=== PATIENT | female | born 1970 | race Caucasian/White ===

== ENCOUNTER 2017-01-04 00:07 | Emergency (ER) | payer OTHER ==
[2017-01-04] MEDS ORDERED: SUBLIMAZE 100 MCG/2 ML IV ONE ×2 (00:22→01:53)
[2017-01-04] MEDS ORDERED: Sodium Chloride 0.9% 1000 ML 1,000 ML IV STA ×2 (00:22→01:55)
--- NOTE | 2017-01-04 00:22 | ERPHSYRPT ---
- History of Present Illness Source: patient, family Patient Subjective Stated Complaint: PT STATES SHE HAS BEEN OUTSIDE IN THE HEAT A LOT THE LAST FEW DAYS AND STATES HER HEAD BEGAN TO HURT THIS MORNING. PT STATES THE PAIN IS IN THE LEFT SIDE OF HER HEAD. PT STATES SHE HAS BEEN UNDER A LOT OF STRESS RECENTLY. Triage Nursing Assessment: PT IS AOX3, PUPILS PERRL, AMBULATORY TO COT WITH NO DIFFICULTIES, RESPS ARE EASY AND NON LABORED, RADIAL PULSES STRONG AND EQUAL. Physician History: Patient out in the sun and heat last couple of days at [facility] and under some increased emotional stress was bolused chronic pain low back for which she is to see a pain specialist later today. Slight nausea and photophobia a history of infrequent headaches and no previous history of migraines. No recent head trauma. Timing/Duration: today, worse Quality: aching, throbbing, tightness Head Pain Location: frontal, temporal Severity of Pain-Max: severe Severity of Pain-Current: severe Recent Head Trauma: no recent headache/trauma Modifying Factors: Improves With: other (as noted above) Associated Symptoms: nausea/vomiting (nausea only), sensitive to light Previous symptoms: other (headaches usually infrequent) Allergies/Adverse Reactions: Sulfa (Sulfonamide Antibiotics) Allergy (Verified 01/04/17 00:17) Home Medications: Alprazolam 1 mg [Xanax 1 mg] 1 mg PO BID PRN 01/04/17 [History] Estradiol 1 mg [Estrace 1 mg] 1 mg PO DAILY 01/04/17 [History] Hydrocodone Bit/Acetaminophen [Hydrocodon-Acetaminophn 10-325] 1 each PO Q4- 6HPRN PRN 01/04/17 [History] Hx Tetanus, Diphtheria Vaccination/Date Given: Yes Hx Influenza Vaccination/Date Given: No Hx Pneumococcal Vaccination/Date Given: No Immunizations Up to Date: Yes - Review of Systems Constitutional: Fatigue, No Fever, No Chills Eyes: Photophobia Ears, Nose, & Throat: No Symptoms Respiratory: No Symptoms Cardiac: No Symptoms Abdominal/Gastrointestinal: Nausea (only) Genitourinary Symptoms: No Symptoms Musculoskeletal: No Symptoms Skin: No Symptoms Neurological: No Symptoms Psychological: No Symptoms Endocrine: No Symptoms - Past Medical History Pertinent Past Medical History: No Neurological History: No Pertinent History ENT History: No Pertinent History Cardiac History: No Pertinent History Respiratory History: Asthma Endocrine Medical History: No Pertinent History Musculoskeletal History: Degenerative Disk Disease (chronic low back pain) GI Medical History: No Pertinent History History: No Pertinent History Psycho-Social History: Anxiety Female Reproductive Disorders: No Pertinent History Other Medical History: ALLERGIES - Past Surgical History Past Surgical History: Yes Female Surgical History: Hysterectomy - Social History Smoking Status: Current every day smoker How long have you smoked: 1 Exposure to second hand smoke: Yes Drug Use: none Patient Lives Alone: No - Female History Hx Last Menstrual Period: HYST - Nursing Vital Signs Nursing Vital Signs: Initial Vital Signs Temperature 97.7 F 01/04/17 00:08 Pulse Rate 65 01/04/17 00:08 Respiratory Rate 20 01/04/17 00:08 Blood Pressure 141/91 01/04/17 00:08 O2 Sat by Pulse Oximetry 97 01/04/17 00:08 Pain Scale Pain Intensity 2 - Physical Exam General Appearance: moderate distress, alert, anxiety, obese Eye Exam: PERRL/EOMI Ears, Nose, Throat Exam: normal ENT inspection Neck Exam: normal inspection, non-tender, full range of motion, No supple, No Brudzinski, No Kernig's, No limited range of motion, No lymphadenopathy Respiratory Exam: normal breath sounds, lungs clear Cardiovascular Exam: regular rate/rhythm, normal heart sounds, normal peripheral pulses Gastrointestinal/Abdominal Exam: soft, normal bowel sounds, No tenderness, No distention, No mass, No guarding, No pulsatile mass, No rebound Back Exam: normal inspection Extremity Exam: normal inspection Mental Status Exam: alert, oriented x 3, 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 Exam: normal hearing, normal speech, PERRL, No abnormal eye position, No facial droop Coordination/Gait Exam: normal gait Motor/Sensory Exam: no motor deficit, no sensory deficit, No weak motor strength RUE, No weak motor strength LUE, No weak motor strength RLE, No weak motor strength LLE Skin Exam: normal color, warm, dry Lymphatic Exam: No adenopathy SpO2 Interpretation: normal SpO2: 97 Oxygen Delivery: Room Air Ordered Tests: Active Orders 24 hr Category Date Time Status CBC W DIFF Stat Lab 01/04/17 00:42 Completed CK-Creatinine Phosphokinase Stat Lab 01/04/17 00:42 Completed CMP Stat Lab 01/04/17 00:42 Completed MAGNESIUM Stat Lab 01/04/17 00:42 Completed Medication Summary Discontinued Medications Generic Name Dose Route Start Last Admin Trade Name Josiah PRN Reason Stop Dose Admin Diphenhydramine HCl 25 mg 01/04/17 01:52 01/04/17 02:04 Benadryl 50 Mg/Ml IV 01/04/17 01:53 25 mg STAT ONE Administration Diphenhydramine HCl Confirm 01/04/17 02:01 Benadryl 50 Mg/Ml Administered 01/04/17 02:02 Dose 50 mg .ROUTE .STK-MED ONE Fentanyl Citrate 50 mcg 01/04/17 00:22 01/04/17 00:45 Sublimaze 100 Mcg/2 Ml IV 01/04/17 00:23 50 mcg STAT ONE Administration Fentanyl Citrate Confirm 01/04/17 00:43 Sublimaze 100 Mcg/2 Ml Administered 01/04/17 00:44 Dose 100 mcg .ROUTE .STK-MED ONE Fentanyl Citrate 50 mcg 01/04/17 01:53 01/04/17 02:04 Sublimaze 100 Mcg/2 Ml IV 01/04/17 01:54 50 mcg STAT ONE Administration Fentanyl Citrate Confirm 01/04/17 02:01 Sublimaze 100 Mcg/2 Ml Administered 01/04/17 02:02 Dose 100 mcg .ROUTE .STK-MED ONE Sodium Chloride 1,000 mls @ 999 mls/hr 01/04/17 00:22 01/04/17 00:45 Sodium Chloride 0.9% 1000 Ml IV 01/04/17 01:22 999 mls/hr .Q1H1M STA Administration Sodium Chloride Confirm 01/04/17 00:43 Sodium Chloride 0.9% 1000 Ml Administered 01/04/17 00:44 Dose 1,000 mls @ ud .ROUTE .STK-MED ONE Sodium Chloride 1,000 mls @ 999 mls/hr 01/04/17 01:55 01/04/17 02:09 Sodium Chloride 0.9% 1000 Ml IV 01/04/17 02:55 999 mls/hr .Q1H1M STA Administration Sodium Chloride Confirm 01/04/17 02:02 Sodium Chloride 0.9% 1000 Ml Administered 01/04/17 02:03 Dose 1,000 mls @ ud .ROUTE .STK-MED ONE Lab/Rad Data: Laboratory Result Diagrams 01/04/17 00:42 01/04/17 00:42 Laboratory Results 01/04/17 01/04/17 Range/Units 00:42 00:42 WBC 7.1 (4.0-10.5) K/mm3 RBC 4.14 (4.1-5.4) M/mm3 Hgb 13.7 (12.0-16.0) gm/dl Hct 41.3 (35-47) % MCV 99.8 (78-100) fl MCH 33.1 H (26-32) pg MCHC 33.2 (32-36) g/dl RDW 13.3 (11.5-14.0) % Plt Count 229 (150-450) K/mm3 MPV 10.5 H (6-9.5) fl Gran % 51.6 (36.0-66.0) % Lymphocytes % 32.7 (24.0-44.0) % Monocytes % 8.0 (0.0-12.0) % Eosinophils % 6.9 H (0.00-5.0) % Basophils % 0.8 (0.0-0.4) % Basophils # 0.06 (0-0.4) Sodium 141 (136-145) mEq/L Potassium 3.7 (3.5-5.1) mEq/L Chloride 106 (98-107) mEq/L Carbon Dioxide 27.3 (21-32) mEq/L Anion Gap 11.5 (5-15) MEQ/L BUN 9 (9-20) mg/dL Creatinine 0.77 (0.55-1.30) mg/dl Estimated GFR > 60 ML/MIN Glucose 119 H (70-110) MG/DL Calcium 9.0 (8.5-10.1) mg/dL Magnesium 2.0 (1.8-2.4) mg/dL Total Bilirubin 0.20 (0.2-1.0) mg/dL AST 23 (15-37) U/L ALT 30 (12-78) U/L Alkaline Phosphatase 68 (46-116) U/L Creatine Kinase 85 (26-192) U/L Serum Total Protein 7.1 (6.4-8.2) gm/dL Albumin 3.5 (3.4-5.0) g/dL - Progress Progress: improved, re-examined Air Movement: good Progress Note: 01/04/17 03:16Patient markedly improved after 2 L of normal saline 2 doses of intravenous fentanyl and 1 of IV Benadryl. Resting comfortably with no further nausea or vomiting. Headache markedly improved ready for discharge home. See discharge diagnosis and instructions. Probable heat exhaustion/cephalgia symptomatology. Blood Culture(s) Obtained: No Antibiotics given: No - Departure Time of Disposition: 03:13 Departure Disposition: Home Clinical Impression: Heat exhaustion, unspecified Qualifiers: Encounter type: initial encounter Qualified Code(s): T67.5XXA - Heat exhaustion , unspecified, initial encounter Cephalgia Qualifiers: Headache type: unspecified Headache chronicity pattern: acute headache Condition: Stable Critical Care Time: No Referrals: NAHID ZHOU [Primary Care Provider] - Instructions: Headache Additional Instructions: Recommend resting dark room next 4 hours with nothing to eat or drink. Then slowly returned to regular diet but also recommend one 16 ounce Powerade or Gatorade daily. Return to your regular medications and follow up with your medical appointment later today. Return to ER or see medical provider for any significant concerns or issues such as severe recurrent headache nausea vomiting fever chills etc.
[2017-01-04] MEDS ORDERED: Sodium Chloride 0.9% 1000 ML 1,000 ML ONE ×2 (00:43→02:02)
[2017-01-04] MEDS ORDERED: SUBLIMAZE 100 MCG/2 ML ONE ×2 (00:43→02:01)
[2017-01-04 00:45] LABS: BASOPHIL % 0.8 % (0.0-0.4); Eosinophil % 6.9 % (0.00-5.0); Granulocytes % 51.6 % (36.0-66.0); Lymphocytes % 32.7 % (24.0-44.0); Mean Cell Volume 99.8 fl (78-100); Mean Corpuscular Hemoglobin 33.1 pg (26-32); Mean Platelet Volume 10.5 fl (6-9.5); Platelet Count 229 K/mm3 (150-450); Red Blood Count 4.14 M/mm3 (4.1-5.4); Red Cell Distribution Width 13.3 % (11.5-14.0); White Blood Count 7.1 K/mm3 (4.0-10.5)
[2017-01-04 01:06] LABS: ALBUMIN 3.5 g/dL (3.4-5.0); ALKALINE PHOSPHATASE 68 U/L (46-116); ANION GAP 11.5 MEQ/L (5-15); BLOOD UREA NITROGEN 9 mg/dL (9-20); CHLORIDE 106 mEq/L (98-107); Carbon Dioxide 27.3 mEq/L (21-32); Glucose 119 MG/DL (70-110); Potassium 3.7 mEq/L (3.5-5.1); SGOT/AST 23 U/L (15-37); SGPT/ALT 30 U/L (12-78); SODIUM 141 mEq/L (136-145); Total Protein 7.1 gm/dL (6.4-8.2)
[2017-01-04] MEDS ORDERED: BENADRYL 50 MG/ML IV ONE (01:52)
[2017-01-04] MEDS ORDERED: BENADRYL 50 MG/ML ONE (02:01)
[2017-01-04 03:20] VITALS: BP 123/59; PULSE 65
[2017-01-04 03:23] VITALS: O2SAT 97
== END 2017-01-04 03:37 | disposition home or self-care (01) ==
LOC: ED 00:07
DX: T67.5XXA Heat exhaustion, unspecified, initial encounter (principal); R51 Headache
CPT/HCPCS: 36415; 80053; 82550; 83735; 85025; 96360; 96361; 99284; J1200; J3010

== ENCOUNTER 2018-05-23 06:03 | Day surgery (SDC) | payer OTHER ==
[2018-05-23] MEDS ORDERED: DIPRIVAN 200 MG/20 ML IV ONE (06:04)
[2018-05-23] MEDS ORDERED: Lactated Ringers 1,000 ML IV SCH (06:30)
[2018-05-23] MEDS ORDERED: Lactated Ringers 1,000 ML IV ONE (08:26)
--- NOTE | 2018-05-23 08:49 | OP ---
SURGERY DATE/TIME: 05/23/2018 0746 PREOPERATIVE DIAGNOSIS: Change in bowel habits with constipation, cecal swelling, history of irritable bowel. POSTOPERATIVE DIAGNOSIS: Multiple polyps small in the rectum area and one in the descending colon. PROCEDURE: Colonoscopy with biopsy. SURGEON: Dr. Powell. ANESTHESIA: MAC. Medications given by anesthesia department. HISTORY: The patient is a 47 year-old white female presenting now for colonoscopic evaluation. She reports she has been having change in bowel habits with cecal swelling and difficulty with constipation. She reports she had been previously diagnosed years ago with irritable bowel syndrome. The patient reports she did have previous colonoscopy years ago which was essentially negative. The patient was felt to need to have re-investigation at this point with her change in bowel habits. She was described the risks of the procedure including the risk of perforation, phlebitis, untoward reaction to medication, bleeding and missed lesions. The patient verbalized her understanding and desired to have the procedure performed. DESCRIPTION OF PROCEDURE: The patient was given the medications by the anesthesia department. She had continuous pulse oximetry, ECG monitoring, intermittent blood pressure monitoring and tidal CO2 monitoring during the examination. She was placed in the left lateral decubitus position. A digital rectal examination was performed and revealed anal sphincter tone to be somewhat loose. No palpable masses were felt. The flexible Olympus pediatric colonoscope was used to intubate the rectum. A view of the colon was developed sequentially to the cecum. Upon insertion and withdrawal, including a retroflex view in the rectum was noted a small polyp in the descending colon this is biopsied to rule out adenomatous change. There were also multiple polyps in the rectosigmoid area and these were biopsied using cold biopsy technique to determine the nature of these lesions as well. The scope was removed from the patient who tolerated the procedure well and was sent back to OP recovery in good condition. The prep was noted to be fair.
[2018-05-23 09:33] VITALS: O2SAT 98
[2018-05-23 09:54] VITALS: BP 102/70; PULSE 58
== END 2018-05-23 09:45 | disposition home or self-care (01) ==
LOC: SDC 06:03
PROVIDERS: ATTEND Family Medicine
DX: K62.1 Rectal polyp (principal); R19.4 Change in bowel habit; K59.00 Constipation, unspecified; K63.5 Polyp of colon
CPT/HCPCS: 88305; 94250; J2704

== ENCOUNTER 2019-05-07 06:58 | Day surgery (SDC) | payer OTHER ==
[~2019-05-07 06:58] MED LIST: Lactated Ringers 1,000 ML IV ONE; Sensorcaine 0.25% 10 ML ONE
[2019-05-07] MEDS ORDERED: Lactated Ringers 1,000 ML IV SCH (07:30)
[2019-05-07] MEDS ORDERED: MEFOXIN 2 GM PREMIX** 2 GM/50 ML ML IV ONE (07:38)
[2019-05-07] MEDS ORDERED: Lactated Ringers 1,000 ML IV ONE (07:38)
--- NOTE | 2019-05-07 07:52 | HP ---
DATE OF SURGERY: 05/07/2019 ANTICIPATED PROCEDURE: Laparoscopic cholecystectomy. HISTORY OF PRESENT ILLNESS: A 48 year-old presents was seen and examined. Procedure discussed in detail and wished to proceed. PAST MEDICAL HISTORY: ALLERGIES: SULFA. MEDICATIONS: Multiple. PAST SURGICAL HISTORY: Hysterectomy. Sinus surgery. Carpal tunnel. SOCIAL HISTORY: Two packs per day. ETOH negative. FAMILY HISTORY: Negative. REVIEW OF SYSTEMS: CVS: Positive. PULMONARY: Negative. NEURO: History of seizure, migraines, anxiety. GI: Present illness. : Negative. PHYSICAL EXAMINATION: VITAL SIGNS: Normal. CHEST: Clear. COR: Regular. ABDOMEN: Satisfactory. IMPRESSION: Symptomatic cholelithiasis. PLAN: Laparoscopic cholecystectomy.
[2019-05-07] MEDS ORDERED: MEFOXIN 2 GM PREMIX** 2 GM/50 ML ML IV SCH (08:00)
[2019-05-07] MEDS ORDERED: DIPRIVAN 200 MG/20 ML IV ONE (08:43)
[2019-05-07] MEDS ORDERED: Quelicin Fliptop 200 MG/10 ML ONE (08:43)
[2019-05-07] MEDS ORDERED: SUBLIMAZE 100 MCG/2 ML ONE ×2 (08:43→09:38)
[2019-05-07] MEDS ORDERED: Zemuron 100 MG/10 ML ONE (08:43)
[2019-05-07] MEDS ORDERED: Zofran 4 MG/2 ML VIAL ONE ×2 (09:05→09:44)
[2019-05-07] MEDS ORDERED: BRIDION 200MG/2ML IV ONE (09:05)
[2019-05-07] MEDS ORDERED: TORAdol 30 mg Injection ONE (09:05)
[2019-05-07] MEDS ORDERED: Decadron 4 MG INJ ONE (09:05)
[2019-05-07] MEDS ORDERED: Sensorcaine 0.25% 10 ML ONE (09:21)
[2019-05-07] MEDS ORDERED: DILAUDID 2 MG INJECTION ONE ×2 (09:44→10:34)
--- NOTE | 2019-05-07 10:28 | OP ---
SURGERY DATE/TIME: 05/07/2019 0849 PREOPERATIVE DIAGNOSIS: Symptomatic cholelithiasis. POSTOPERATIVE DIAGNOSIS: Symptomatic cholelithiasis. PROCEDURE: Laparoscopic cholecystectomy. SURGEON: Dr. Carrera. ANESTHESIA: General endotracheal tube. COMPLICATIONS: None. CONDITION: Stable. INDICATIONS: A patient with upper abdominal pain, ultrasound positive. Seen and examined. Procedure discussed in detail and wished to proceed. DESCRIPTION OF PROCEDURE AND FINDINGS: Taken to surgery. General anesthetic, routine prep and drape. Veress needle inserted. Opening pressure of 1, insufflating pressure 14. Four - 5's. Good visualization. Cystic duct defined. Infundibulum defined. Cystic duct triply clipped medial and once laterally and transected. Clips noted across and well approximated. Gallbladder rolled out of gallbladder fossa. Cystic artery triply clipped. The gallbladder delivered through upper abdominal port. There were three large yellow stones and these were crushed up and pulled out and totally extracted. The field was totally dry and clean. The hole closure device used at the epigastric port that had been widened slightly. CO2 is exsufflated. Skin closed with 4-0 Vicryl and Steri-Strips. The patient tolerated the procedure satisfactorily.
[2019-05-07 12:09] VITALS: BP 114/67; PULSE 75; O2SAT 90
== END 2019-05-07 12:28 | disposition home or self-care (01) ==
LOC: SDC 06:58
PROVIDERS: ATTEND Surgery
DX: K80.20 Calculus of gallbladder without cholecystitis without obstruction (principal); G40.909 Epilepsy, unspecified, not intractable, without status epilepticus; F41.9 Anxiety disorder, unspecified
CPT/HCPCS: 88304; J0330; J0694; J1100; J1170; J1885; J2405; J2704; J3010

== ENCOUNTER 2020-05-13 09:56 | Emergency (ER) | payer OTHER ==
[2020-05-13] MEDS ORDERED: Sodium Chloride 0.9% 1000 ML 1,000 ML IV STA (10:31)
[2020-05-13] MEDS ORDERED: PROTONIX 40 MG IV IV ONE ×2 (10:31→11:02)
[2020-05-13] MEDS ORDERED: Hydromorphone 1 mg/ml Injection IV ONE (10:31)
[2020-05-13] MEDS ORDERED: Zofran 4 MG/2 ML VIAL IV ONE (10:31)
--- NOTE | 2020-05-13 10:43 | ERPHSYRPT ---
- History of Present Illness Time Seen by Provider: 05/13/20 10:15 Historian: patient Exam Limitations: no limitations Patient Subjective Stated Complaint: abd pain Triage Nursing Assessment: pt to ED c/o upper abd pain bilaterally that radiates around to back. rates 8/10 pain intermittently. tender to palp. reports abd pain osnet this am but diarrhea began last night. has had many episodes diarrhea since onset, some nausea reported, no emesis. denies recent COVID exposure but was positive in January. Physician History: This is a 49-year-old white female patient who has had a cholecystectomy in the past and presents with bilateral upper quadrant and epigastric abdominal pain. She rates the pain an 8 out of 10. Her first symptoms began last night which included nausea and diarrhea but no vomiting. This morning her abdominal pain is more significant and radiates into her back. She denies chest pain. She de nies shortness of breath. She has had this type of pain in the past but it has not lasted this long. She did eat Thanksgiving dinner yesterday but did not eat a lot because she states that she is a picky eater. No other individuals have the similar symptoms who consumed the same dinner with her last night. Patient has no myalgias or arthralgias. She has had no fever. She was tested for COVID -19 in early January and that test was negative. Patient has had a tubal ligation in the past. At a later time she had a hysterectomy performed. Activities at Onset: none Quality: aching, cramping Abdominal Pain Onset Location: RUQ, LUQ, epigastric Pain Radiation: back (Right side) Severity of Pain-Max: moderate Severity of Pain-Current: moderate Modifying Factors: Improves With: nothing Associated Symptoms: diarrhea, nausea, No chest pain, No diaphoresis, No shortness of breath, No vomiting Previous symptoms: same symptoms as today (In the distant past) Allergies/Adverse Reactions: Sulfa (Sulfonamide Antibiotics) Allergy (Verified 05/13/20 10:13) Home Medications: Alprazolam 1 mg [Xanax 1 mg] 1 mg PO BID 05/22/18 [History] Estradiol 2 mg PO DAILY 05/22/18 [History] Loratadine 10 mg [Claritin 10 mg] 10 mg PO DAILY 05/22/18 [History] Potassium Chloride 10 Meq Tab* [Klor Con 10 MEQ] 10 meq PO BID 05/22/18 [History] Pravastatin Sodium 40 mg PO DAILY 05/22/18 [History] Topiramate [Topiramate ER] 150 mg PO HS 05/22/18 [History] Tizanidine HCl 4 mg [Zanaflex 4 MG] 4 mg PO BID 04/29/19 [History] Hx Tetanus, Diphtheria Vaccination/Date Given: Yes Hx Influenza Vaccination/Date Given: No Hx Pneumococcal Vaccination/Date Given: No Travel Risk - International Travel Have you traveled outside of the country in past 3 weeks: No (n) If Yes, where;: n - Coronavirus Screening Are you exhibiting any of the following symptoms?: No Close contact with a COVID-19 positive Pt in past 14-21 Days: No - Review of Systems Constitutional: No Symptoms Eyes: No Symptoms Ears, Nose, & Throat: No Symptoms Respiratory: No Symptoms Cardiac: No Symptoms Abdominal/Gastrointestinal: Abdominal Pain, Nausea, Diarrhea, No Vomiting Genitourinary Symptoms: No Symptoms Musculoskeletal: No Symptoms Skin: No Symptoms Neurological: No Symptoms Psychological: No Symptoms Endocrine: No Symptoms Hematologic/Lymphatic: No Symptoms Immunological/Allergic: No Symptoms All Other Systems: Reviewed and Negative - Past Medical History Pertinent Past Medical History: No Neurological History: Seizures ENT History: No Pertinent History Cardiac History: Angina, High Cholesterol Respiratory History: No Pertinent History Endocrine Medical History: No Pertinent History Musculoskeletal History: Degenerative Disk Disease GI Medical History: No Pertinent History History: No Pertinent History Psycho-Social History: Anxiety Female Reproductive Disorders: No Pertinent History Other Medical History: PATIENT STATES HX OF ONE SEIZURE BUT IS ON MEDICATION AND NO RECENT EPISODES. ALSO RECENT WORKUP FOR ANGINA. ALL TESTS INCLUDING STRESS TEST HAVE BEEN NEGATIVE FOR ANYTHING CARDIAC. - Past Surgical History Past Surgical History: Yes Neuro Surgical History: No Pertinent History Cardiac: No Pertinent History Respiratory: No Pertinent History Gastrointestinal: Cholecystectomy Genitourinary: No Pertinent History Musculoskeletal: Other Female Surgical History: Hysterectomy, Tubal Ligation Other Surgical History: sinus, carpal tunnel release - Social History Smoking Status: Current every day smoker How long have you smoked: age 13 Exposure to second hand smoke: No Drug Use: none Patient Lives Alone: No - Female History Hx Now: No - Nursing Vital Signs Nursing Vital Signs: Initial Vital Signs Temperature 97.2 F 05/13/20 10:02 Pulse Rate 60 05/13/20 10:02 Respiratory Rate 16 05/13/20 10:02 Blood Pressure 116/44 05/13/20 10:02 O2 Sat by Pulse Oximetry 99 05/13/20 10:02 Pain Scale Pain Intensity 2 - Physical Exam General Appearance: mild distress, alert, anxiety Eye Exam: PERRL/EOMI, eyes nml inspection Ears, Nose, Throat Exam: normal ENT inspection, moist mucous membranes Neck Exam: normal inspection, non-tender, supple, full range of motion Respiratory Exam: normal breath sounds, lungs clear, airway intact, No chest tenderness, No respiratory distress Cardiovascular Exam: regular rate/rhythm, normal heart sounds, normal peripheral pulses Gastrointestinal/Abdomen Exam: soft, normal bowel sounds, tenderness (Bilateral upper quadrants and epigastric region), guarding (Mild), No distention, No mass, No rebound Pelvic Exam: not done Rectal Exam: not done Back Exam: normal inspection, normal range of motion, No CVA tenderness, No vertebral tenderness Extremity Exam: normal inspection, normal range of motion, pelvis stable Neurologic Exam: alert, oriented x 3, cooperative, laundry washer II-XII nml as tested Skin Exam: normal color, warm, dry Lymphatic Exam: No adenopathy SpO2 Interpretation: normal SpO2: 99 O2 Delivery: Room Air - Course Nursing assessment & vital signs reviewed: Yes EKG Interpreted by Me: RATE (58), Sinus Rhythm, NORMAL AXIS, NORMAL INTERVALS, NORMAL QRS, Other (There are no acute ischemic changes on this EKG today. When compared to an EKG dated 05/07/2019, there are no changes.) Ordered Tests: Active Orders 24 hr Category Date Time Status EKG-ER Only STAT Care 05/13/20 10:31 Active IV Insertion STAT Care 05/13/20 10:31 Active ABDOMEN AND PELVIS W/0 CONTRAS [CT] Stat Exams 05/13/20 10:31 Completed AMYLASE Stat Lab 05/13/20 10:50 Completed CBC W DIFF Stat Lab 05/13/20 10:50 Completed CMP Stat Lab 05/13/20 10:50 Completed LIPASE Stat Lab 05/13/20 10:50 Completed Lactic Acid Stat Lab 05/13/20 10:31 Completed TROPONIN Q3H Lab 05/13/20 10:50 Completed TROPONIN Q3H Lab 05/13/20 13:45 Ordered TROPONIN Q3H Lab 05/13/20 16:45 Ordered TROPONIN Q3H Lab 05/13/20 19:45 Ordered TROPONIN Q3H Lab 05/13/20 22:45 Ordered UA W/RFX UR CULTURE Stat Lab 05/13/20 10:34 Completed Medication Summary Discontinued Medications Generic Name Dose Route Start Last Admin Trade Name Freq PRN Reason Stop Dose Admin Hydromorphone HCl 1 mg 05/13/20 10:31 05/13/20 11:07 Hydromorphone 1 Mg/Ml Injection IV 05/13/20 10:32 1 mg STAT ONE Administration Hydromorphone HCl Confirm 05/13/20 11:02 Hydromorphone 1 Mg/Ml Injection Administered 05/13/20 11:03 Dose 1 mg .ROUTE .STK-MED ONE Sodium Chloride 1,000 mls @ 999 mls/hr 05/13/20 10:31 05/13/20 11:07 Sodium Chloride 0.9% 1000 Ml IV 05/13/20 11:31 999 mls/hr .Q1H1M STA Administration Sodium Chloride Confirm 05/13/20 11:02 Sodium Chloride 0.9% 1000 Ml Administered 05/13/20 11:03 Dose 1,000 mls @ ud .ROUTE .STK-MED ONE Ondansetron HCl 4 mg 05/13/20 10:31 05/13/20 11:07 Zofran 4 Mg/2 Ml Vial IV 05/13/20 10:32 4 mg STAT ONE Administration Ondansetron HCl Confirm 05/13/20 11:02 Zofran 4 Mg/2 Ml Vial Administered 05/13/20 11:03 Dose 4 mg .ROUTE .STK-MED ONE Pantoprazole Sodium 40 mg 05/13/20 10:31 05/13/20 11:07 Protonix 40 Mg Iv IV 05/13/20 10:32 40 mg STAT ONE Administration Pantoprazole Sodium Confirm 05/13/20 11:02 Protonix 40 Mg Iv Administered 05/13/20 11:03 Dose 40 mg IV .STK-MED ONE Lab/Rad Data: Laboratory Result Diagrams 05/13/20 10:50 05/13/20 10:50 Laboratory Results 05/13/20 05/13/20 05/13/20 Range/Units 10:50 10:50 10:50 WBC 5.0 (4.0-10.5) K/mm3 RBC 4.28 (4.1-5.4) M/mm3 Hgb 14.0 (12.0-16.0) gm/dl Hct 42.9 (35-47) % MCV 100.2 H (78-100) fl MCH 32.7 H (26-32) pg MCHC 32.6 (32-36) g/dl RDW 13.2 (11.5-14.0) % Plt Count 219 (150-450) K/mm3 MPV 11.8 H (7.5-11.0) fl Gran % 62.4 (36.0-66.0) % Eos # (Auto) 0.19 (0-0.5) Absolute Lymphs (auto) 1.17 (1.0-4.6) Absolute Monos (auto) 0.48 (0.0-1.3) Lymphocytes % 23.5 L (24.0-44.0) % Monocytes % 9.7 (0.0-12.0) % Eosinophils % 3.8 (0.00-5.0) % Basophils % 0.6 (0.0-0.4) % Absolute Granulocytes 3.10 (1.4-6.9) Basophils # 0.03 (0-0.4) Sodium 141 (137-145) mmol/L Potassium 3.6 (3.5-5.1) mmol/L Chloride 114 H (98-107) mmol/L Carbon Dioxide 22 (22-30) mmol/L Anion Gap 9.6 (5-15) MEQ/L BUN 6 L (7-17) mg/dL Creatinine 0.73 (0.52-1.04) mg/dL Estimated GFR > 60.0 ML/MIN Glucose 104 (74-106) mg/dL Lactic Acid (0.4-2.0) Calcium 8.9 (8.4-10.2) mg/dL Total Bilirubin 0.50 (0.2-1.3) mg/dL AST 94 H (14-36) U/L ALT 32 (0-35) U/L Alkaline Phosphatase 111 (38-126) U/L Troponin I < 0.012 (0.000-0.034) ng/mL Serum Total Protein 7.6 (6.3-8.2) g/dL Albumin 4.1 (3.5-5.0) g/dL Amylase 85 (30-110) U/L Lipase 94 (23-300) U/L Urine Color (YELLOW) Urine Appearance (CLEAR) Urine pH (5-6) Ur Specific [place] (1.005-1.025) Urine Protein (Negative) Urine Ketones (NEGATIVE) Urine Blood (0-5) Fernando/ul Urine Nitrite (NEGATIVE) Urine Bilirubin (NEGATIVE) Urine Urobilinogen (0-1) mg/dL Ur Leukocyte Esterase (NEGATIVE) Urine WBC (Auto) (0-5) /HPF Urine RBC (Auto) (0-2) /HPF U Epithel Cells (Auto) (FEW) /HPF Urine Bacteria (Auto) (NEGATIVE) /HPF Urine Mucus (Auto) (NEGATIVE) /HPF Urine Culture Reflexed (NO) Urine Glucose (NEGATIVE) mg/dL 05/13/20 05/13/20 Range/Units 10:34 10:31 WBC (4.0-10.5) K/mm3 RBC (4.1-5.4) M/mm3 Hgb (12.0-16.0) gm/dl Hct (35-47) % MCV (78-100) fl MCH (26-32) pg MCHC (32-36) g/dl RDW (11.5-14.0) % Plt Count (150-450) K/mm3 MPV (7.5-11.0) fl Gran % (36.0-66.0) % Eos # (Auto) (0-0.5) Absolute Lymphs (auto) (1.0-4.6) Absolute Monos (auto) (0.0-1.3) Lymphocytes % (24.0-44.0) % Monocytes % (0.0-12.0) % Eosinophils % (0.00-5.0) % Basophils % (0.0-0.4) % Absolute Granulocytes (1.4-6.9) Basophils # (0-0.4) Sodium (137-145) mmol/L Potassium (3.5-5.1) mmol/L Chloride (98-107) mmol/L Carbon Dioxide (22-30) mmol/L Anion Gap (5-15) MEQ/L BUN (7-17) mg/dL Creatinine (0.52-1.04) mg/dL Estimated GFR ML/MIN Glucose (74-106) mg/dL Lactic Acid 0.9 (0.4-2.0) Calcium (8.4-10.2) mg/dL Total Bilirubin (0.2-1.3) mg/dL AST (14-36) U/L ALT (0-35) U/L Alkaline Phosphatase (38-126) U/L Troponin I (0.000-0.034) ng/mL Serum Total Protein (6.3-8.2) g/dL Albumin (3.5-5.0) g/dL Amylase (30-110) U/L Lipase (23-300) U/L Urine Color YELLOW (YELLOW) Urine Appearance SLIGHTLY CLOUDY (CLEAR) Urine pH 6.0 (5-6) Ur Specific [place] 1.025 (1.005-1.025) Urine Protein 30 (Negative) Urine Ketones NEGATIVE (NEGATIVE) Urine Blood NEGATIVE (0-5) Fernando/ul Urine Nitrite NEGATIVE (NEGATIVE) Urine Bilirubin SMALL (NEGATIVE) Urine Urobilinogen 2 (0-1) mg/dL Ur Leukocyte Esterase NEGATIVE (NEGATIVE) Urine WBC (Auto) 3-5 (0-5) /HPF Urine RBC (Auto) 0-2 (0-2) /HPF U Epithel Cells (Auto) RARE (FEW) /HPF Urine Bacteria (Auto) RARE (NEGATIVE) /HPF Urine Mucus (Auto) SLIGHT (NEGATIVE) /HPF Urine Culture Reflexed NO (NO) Urine Glucose NEGATIVE (NEGATIVE) mg/dL - Progress Progress: improved, pain not gone completely, re-examined Progress Note: 05/13/20 11:45 Cat scan of the abdomen and pelvis shows a stable right renal cyst with nonobstructing microcalculus. The remainder of the abdomen and pelvis CAT scan is negative for any acute abnormality. Counseled pt/family regarding: lab results, diagnosis, need for follow-up, rad results - Departure Departure Disposition: Home Clinical Impression: Abdominal pain, Diarrhea, Gastritis Condition: Stable Critical Care Time: No Referrals: KARISSA GRAHAM [Primary Care Provider] - Additional Instructions: Drink plenty of fluids. Avoid fatty greasy spicy foods. Follow-up with your [facility] physician for further management. Take medication as prescribed. Prescriptions: Hydrocodone/APAP 5/325 [[place] 5/325 mg] 1 each PO Q8H PRN PRN #6 tablet MDD 3 PRN Reason: Pain Famotidine 20 mg [Pepcid 20 MG] 20 mg PO DAILY #10 tablet Ondansetron HCl [Zofran] 4 mg PO TID PRN #10 tablet PRN Reason: Nausea/Vomiting
[2020-05-13] MEDS ORDERED: Zofran 4 MG/2 ML VIAL ONE (11:02)
[2020-05-13] MEDS ORDERED: Hydromorphone 1 mg/ml Injection ONE (11:02)
[2020-05-13] MEDS ORDERED: Sodium Chloride 0.9% 1000 ML 1,000 ML ONE (11:02)
[2020-05-13 11:24] LABS: Appearance SLIGHTLY CLOUDY (CLEAR); Bilirubin SMALL (NEGATIVE); Blood NEGATIVE Ery/ul (0-5); Epithelial Cells RARE /HPF (FEW); Glucose NEGATIVE (NEGATIVE); Ketones NEGATIVE (NEGATIVE); Leukocyte Esterase NEGATIVE (NEGATIVE); Mucus SLIGHT /HPF (NEGATIVE); Nitrite NEGATIVE (NEGATIVE); Protein,Urine Dip 30 (Negative); Specific Gravity 1.025 (1.005-1.025); Urobilinogen 2 mg/dL (0-1)
--- NOTE | 2020-05-13 11:24 | XRAY ---
Indication: Abdomen pain and diarrhea. Multiple contiguous axial images obtained through the abdomen and pelvis without contrast as ordered. Comparison: January 22, 2019. Lung bases again demonstrates minimal fibrosis/scarring without infiltrate or effusion. Heart is not enlarged. Noncontrasted stomach and bowel loops remain nonobstructed. Normal appendix. Radiopacities throughout the colon presumed ingested medication/bismuth or barium. Again previous hysterectomy with interval cholecystectomy. No free fluid/air. Right kidney demonstrates stable 2.6 cm cyst and nonobstructing punctate calculus. Remaining liver, pancreas, spleen, adrenal glands, kidneys, ureters, and bladder appear unremarkable for noncontrasted exam. Stable minimal aortoiliac calcifications without AAA. Osseous structures intact again with minimal degenerative changes throughout the spine. No ventral or inguinal hernias. Impression: 1. Stable right renal cyst and nonobstructing microcalculus. 2. Remaining CT abdomen/pelvis without contrast exam is again negative.
[2020-05-13 11:28] LABS: ALBUMIN 4.1 g/dL (3.5-5.0); ALKALINE PHOSPHATASE 111 U/L (38-126); AMYLASE 85 U/L (30-110); ANION GAP 9.6 MEQ/L (5-15); BLOOD UREA NITROGEN 6 mg/dL (7-17); CHLORIDE 114 mmol/L (98-107); Calcium 8.9 mg/dL (8.4-10.2); Carbon Dioxide 22 mmol/L (22-30); Creatinine 1 0.73 mg/dL (0.52-1.04); EST GLOMERULAR FILTRATION RATE > 60.0 ML/MIN; Glucose 104 mg/dL (74-106); LIPASE 94 U/L (23-300); Potassium 3.6 mmol/L (3.5-5.1); SGOT/AST 94 U/L (14-36); SGPT/ALT 32 U/L (0-35); SODIUM 141 mmol/L (137-145); Total Protein 7.6 g/dL (6.3-8.2)
[2020-05-13 11:29] LABS: BASOPHIL % 0.6 % (0.0-0.4); Basophil (Absolute #) 0.03 (0-0.4); Eosinophil % 3.8 % (0.00-5.0); Eosinophil (Absolute #) 0.19 (0-0.5); Hematocrit 42.9 % (35-47); Lymphocyte (Absolute #) 1.17 (1.0-4.6); Lymphocytes % 23.5 % (24.0-44.0); Mean Cell Volume 100.2 fl (78-100); Mean Corpuscular Hemoglobin 32.7 pg (26-32); Mean Corpuscular Hgb Concent. 32.6 g/dl (32-36); Mean Platelet Volume 11.8 fl (7.5-11.0); Monocyte (Absolute #) 0.48 (0.0-1.3); Monocytes % 9.7 % (0.0-12.0); Neutrophil % 62.4 % (36.0-66.0); Platelet Count 219 K/mm3 (150-450); Red Blood Count 4.28 M/mm3 (4.1-5.4); Red Cell Distribution Width 13.2 % (11.5-14.0)
[2020-05-13 11:30] LABS: Bacteria RARE /HPF (NEGATIVE); RBC 0-2 /HPF (0-2)
[2020-05-13 11:51] VITALS: O2SAT 99
[2020-05-13 12:20] VITALS: BP 91/58; PULSE 63
== END 2020-05-13 12:26 | disposition home or self-care (01) ==
LOC: ED 09:56
DX: R10.9 Unspecified abdominal pain (principal); R19.7 Diarrhea, unspecified; K29.70 Gastritis, unspecified, without bleeding
CPT/HCPCS: 36000; 36415; 74176; 80053; 81001; 82150; 83605; 83690; 84484; 85025; 93005; 96360; 96374; 96375; 99284; J1170; J2405

== ENCOUNTER 2021-06-08 18:53 | Observation (INO) | payer OTHER ==
[2021-06-08] MEDS ORDERED: BABY ASPIRIN 81 MG CHEW PO ONE (19:04)
[2021-06-08] MEDS ORDERED: NITRO-BID 2% UD PACKETS TOP ONE (19:05)
--- NOTE | 2021-06-08 19:10 | ERPHSYRPT ---
- History of Present Illness Time Seen by Provider: 06/08/21 19:05 Historian: patient Exam Limitations: no limitations Patient Subjective Stated Complaint: " I have had chest pains for about an hour now and I have nausea, vomiting, diarrhea. I feel short of breath also" Triage Nursing Assessment: Pt presents to ER with complaints of left sided chest pains x 1 hours. States has experienced nausea, vomiting, and diarrhea all afternoon. Pt states she has shortness of breath. Respirations are slightly labored and pt appears anxious. Pt complains of lightheadness and "tingling" all over. Pt is alert and oriented x3. Skin is pink, warm, and dry. Physician History: Patient is a 50-year-old female presents to emergency department with complaints of chest pain that started approximately 1 hour ago. Patient is also expe riencing shortness of breath and lightheadedness. Patient appears anxious. Chest pain is localized to the left chest. No radiation. No significant worsening or improving factors. Patient is a smoker. No associated trauma. No fever. Patient has been experiencing some nausea and vomiting. Patient also experiencing diarrhea. No rash. Patient denies history of the same. Symptoms are moderate in intensity. No specific worsening improving factors. Patient voices no other complaints or concerns at this time. Timing/Duration: today Activities at Onset: none Quality: aching Location: other (Left chest) Chest Pain Radiation: no radiation Severity of Pain-Max: moderate Severity of Pain-Current: mild Modifying Factors: Improves With: nothing Associated Symptoms: nausea, vomiting, shortness of breath, other (Lightheadedness), No hurts to breathe, No fever, No syncope, No headache Prior Chest Pain/Cardiac Workup: no prior chest pain Nitro Today/Relief: no nitro taken today Aspirin Treatment Today: no aspirin today Allergies/Adverse Reactions: Sulfa (Sulfonamide Antibiotics) Allergy (Verified 06/08/21 19:01) Home Medications: ALPRAZolam 1 MG [Xanax 1 mg] 1 mg PO TID 05/22/18 [History] Loratadine 10 mg [Claritin 10 mg] 10 mg PO DAILY 05/22/18 [History] Potassium Chloride 10 Meq Tab* [Klor Con 10 MEQ] 10 meq PO BID 05/22/18 [History] Pravastatin Sodium 40 mg PO DAILY 05/22/18 [History] Topiramate [Topiramate ER] 150 mg PO HS 05/22/18 [History] estradioL [Estradiol] 2 mg PO DAILY 05/22/18 [History] Tizanidine HCl 4 mg [Zanaflex 4 MG] 4 mg PO BID 04/29/19 [History] Bupropion HCl Xl 150 mg [Wellbutrin XL 150 MG] 150 mg PO DAILY 06/08/21 [History] Buspirone HCl 5 mg [Buspar 5 mg] 15 mg PO BID 06/08/21 [History] Famotidine 20 mg [Pepcid 20 MG] 40 mg PO DAILY 06/08/21 [History] Hx Tetanus, Diphtheria Vaccination/Date Given: Yes Hx Influenza Vaccination/Date Given: Yes Hx Pneumococcal Vaccination/Date Given: No Immunizations Up to Date: Yes Travel Risk - International Travel Have you traveled outside of the country in past 3 weeks: No - Coronavirus Screening Are you exhibiting any of the following symptoms?: Yes Symptoms: Cough: New Onset, Shortness of Breath, Vomiting/Diarrhea, Headaches/Body Aches/Fatigue Close contact with a COVID-19 positive Pt in past 14-21 Days: No - Vaccine Status Have you recieved a Covid-19 vaccination: Yes 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: [employer] - Vaccination Dates Date of 2cond Vaccination (if applicable): unknown - Review of Systems Constitutional: No Symptoms, No Fever, No Chills Eyes: No Symptoms Ears, Nose, & Throat: No Symptoms Respiratory: No Symptoms, No Cough, No Dyspnea Cardiac: No Symptoms, No Chest Pain, No Edema, No Syncope Abdominal/Gastrointestinal: No Symptoms, No Abdominal Pain, No Nausea, No Vomiting, No Diarrhea Genitourinary Symptoms: No Symptoms, No Dysuria Musculoskeletal: No Symptoms, No Back Pain, No Neck Pain Skin: No Symptoms, No Rash Neurological: No Symptoms, No Dizziness, No Focal Weakness, No Sensory Changes Psychological: No Symptoms Endocrine: No Symptoms Hematologic/Lymphatic: No Symptoms Immunological/Allergic: No Symptoms All Other Systems: Reviewed and Negative - Past Medical History Pertinent Past Medical History: Yes Neurological History: Seizures ENT History: No Pertinent History Cardiac History: Angina, High Cholesterol Respiratory History: No Pertinent History Endocrine Medical History: No Pertinent History Musculoskeletal History: Degenerative Disk Disease GI Medical History: No Pertinent History History: No Pertinent History Psycho-Social History: Anxiety Female Reproductive Disorders: No Pertinent History Other Medical History: PATIENT STATES HX OF ONE SEIZURE BUT IS ON MEDICATION AND NO RECENT EPISODES. ALSO RECENT WORKUP FOR ANGINA. ALL TESTS INCLUDING STRESS TEST HAVE BEEN NEGATIVE FOR ANYTHING CARDIAC. - Past Surgical History Past Surgical History: Yes Neuro Surgical History: No Pertinent History Cardiac: No Pertinent History Respiratory: No Pertinent History Gastrointestinal: Cholecystectomy Genitourinary: No Pertinent History Musculoskeletal: Other Female Surgical History: Hysterectomy, Tubal Ligation Other Surgical History: sinus, carpal tunnel release - Social History Smoking Status: Current every day smoker How long have you smoked: age 13 Exposure to second hand smoke: No Drug Use: marijuana Patient Lives Alone: No - Female History Hx Now: No - Nursing Vital Signs Nursing Vital Signs: Initial Vital Signs Temperature 95.9 F 06/08/21 18:55 Pulse Rate 69 06/08/21 18:55 Respiratory Rate 18 06/08/21 18:55 Blood Pressure 116/78 06/08/21 18:55 O2 Sat by Pulse Oximetry 100 06/08/21 18:55 Pain Scale Pain Intensity 3 - Physical Exam General Appearance: no apparent distress, alert, anxiety, other (Patient appears very anxious. She is shaking. Hyperventilating. Patient is experiencing tingling throughout her body. Patient states she is very anxious.) Eye Exam: PERRL/EOMI, eyes nml inspection Ears, Nose, Throat Exam: normal ENT inspection, TMs normal, pharynx normal, moist mucous membranes Neck Exam: normal inspection, non-tender, supple, full range of motion Respiratory Exam: normal breath sounds, lungs clear, airway intact, No respiratory distress Cardiovascular Exam: regular rate/rhythm, normal heart sounds, normal peripheral pulses Gastrointestinal/Abdomen Exam: soft, normal bowel sounds, No tenderness, No distention, No mass, No guarding Back Exam: normal inspection, normal range of motion, No CVA tenderness, No vertebral tenderness Extremity Exam: normal inspection, normal range of motion Neurologic Exam: alert, oriented x 3, cooperative, normal mood/affect, sensation nml, No motor deficits Skin Exam: normal color, warm, dry Lymphatic Exam: No adenopathy SpO2 Interpretation: normal SpO2: 100 O2 Delivery: Room Air - Course Nursing assessment & vital signs reviewed: Yes EKG Interpreted by Me: RATE (59), Sinus Rhythm, NORMAL AXIS, NORMAL INTERVALS - Radiology Exams Chest X-ray Interpretation: Interpreted by me (COPD changes. No infiltrate or consolidation. Normal cardiac silhouette. Intact bony thorax. Osteopenia and arthritis.) - CT Exams Chest CT Interpretation: Tele-radiologist Report (No evidence of pulmonary embolus. 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 06/08/21 19:04 Active EKG-ER Only STAT Care 06/08/21 19:03 Active IV Insertion STAT Care 06/08/21 19:03 Active Pulse Oximetry (ED) STAT Care 06/08/21 19:03 Active CHEST 1 VIEW (PORTABLE) Stat Exams 06/08/21 19:04 Taken CHEST WITH CONTRAST [CT] Stat Exams 06/08/21 19:53 Taken CBC W DIFF Stat Lab 06/08/21 19:15 Completed CMP Stat Lab 06/08/21 19:15 Completed CULTURE,URINE Stat Lab 06/08/21 20:02 Received D-DIMER QUANTITATIVE Stat Lab 06/08/21 19:15 Completed NT PRO BNP Stat Lab 06/08/21 19:15 Completed TROPONIN Q3H Lab 06/08/21 19:15 Completed TROPONIN Q3H Lab 06/08/21 22:10 Completed TROPONIN Q3H Lab 06/09/21 01:15 Ordered TROPONIN Q3H Lab 06/09/21 04:15 Ordered TROPONIN Q3H Lab 06/09/21 07:15 Ordered UA W/RFX UR CULTURE Stat Lab 06/08/21 20:02 Completed Transfer Order Routine Transfer 06/09/21 Ordered Medication Summary Generic Name Dose Route Start Last Admin Trade Name Freq PRN Reason Stop Dose Admin Sodium Chloride 1,000 mls @ 250 mls/hr 06/08/21 21:15 06/08/21 21:22 Sodium Chloride 0.9% 1000 Ml IV 07/08/21 21:14 250 mls/hr .Q4H DANUTA Administration Discontinued Medications Generic Name Dose Route Start Last Admin Trade Name Freq PRN Reason Stop Dose Admin Aspirin 324 mg 06/08/21 19:04 06/08/21 19:12 Aspirin 81 Mg Tab.Chew PO 06/08/21 19:05 324 mg STAT ONE Administration Aspirin Confirm 06/08/21 19:11 Aspirin 81 Mg Tab.Chew Administered 06/08/21 19:12 Dose 324 mg .ROUTE .STK-MED ONE Diphenhydramine HCl 25 mg 06/08/21 21:20 06/08/21 21:21 Diphenhydramine Hcl 50 Mg/Ml Vial IV 06/08/21 21:21 25 mg STAT ONE Administration Diphenhydramine HCl Confirm 06/08/21 21:21 Diphenhydramine Hcl 50 Mg/Ml Vial Administered 06/08/21 21:22 Dose 50 mg .ROUTE .STK-MED ONE Morphine Sulfate 4 mg 06/08/21 23:00 06/08/21 23:02 Morphine Sulfate 4 Mg/Ml Injection IV 06/08/21 23:01 4 mg STAT ONE Administration Morphine Sulfate Confirm 06/08/21 23:00 Morphine Sulfate 4 Mg/Ml Injection Administered 06/08/21 23:01 Dose 4 mg .ROUTE .STK-MED ONE Nitroglycerin 1 gm 06/08/21 19:05 06/08/21 19:12 Nitroglycerin 1 Gm Packet TOP 06/08/21 19:06 1 gm STAT ONE Administration Nitroglycerin Confirm 06/08/21 19:11 Nitroglycerin 1 Gm Packet Administered 06/08/21 19:12 Dose 1 gm .ROUTE .STK-MED ONE Ondansetron HCl 4 mg 06/08/21 23:11 06/08/21 23:12 Ondansetron Hcl 4 Mg/2 Ml Vial IV 06/08/21 23:12 4 mg STAT ONE Administration Ondansetron HCl Confirm 06/08/21 23:12 Ondansetron Hcl 4 Mg/2 Ml Vial Administered 06/08/21 23:13 Dose 4 mg .ROUTE .STK-MED ONE Lab/Rad Data: Laboratory Result Diagrams 06/08/21 19:15 06/08/21 19:15 Laboratory Results 06/08/21 06/08/21 06/08/21 Range/Units 23:13 22:10 20:02 WBC (4.0-10.5) K/mm3 RBC (4.1-5.4) M/mm3 Hgb (12.0-16.0) gm/dl Hct (35-47) % MCV (78-100) fl MCH (26-32) pg MCHC (32-36) g/dl RDW (11.5-14.0) % Plt Count (150-450) K/mm3 MPV (7.5-11.0) fl Gran % (36.0-66.0) % Eos # (Auto) (0-0.5) Absolute Lymphs (auto) (1.0-4.6) Absolute Monos (auto) (0.0-1.3) Lymphocytes % (24.0-44.0) % Monocytes % (0.0-12.0) % Eosinophils % (0.00-5.0) % Basophils % (0.0-0.4) % Absolute Granulocytes (1.4-6.9) Basophils # (0-0.4) D-Dimer (215-500) ng/mL Sodium (137-145) mmol/L Potassium (3.5-5.1) mmol/L Chloride (98-107) mmol/L Carbon Dioxide (22-30) mmol/L Anion Gap (5-15) MEQ/L BUN (7-17) mg/dL Creatinine (0.52-1.04) mg/dL Estimated GFR ML/MIN Glucose (74-106) mg/dL Calcium (8.4-10.2) mg/dL Total Bilirubin (0.2-1.3) mg/dL AST (14-36) U/L ALT (0-35) U/L Alkaline Phosphatase (38-126) U/L Troponin I < 0.012 (0.000-0.034) ng/mL NT-Pro-B Natriuret Pep (0-900) pg/mL Serum Total Protein (6.3-8.2) g/dL Albumin (3.5-5.0) g/dL Urine Color FAITH (YELLOW) Urine Appearance CLOUDY (CLEAR) Urine pH 5.0 (5-6) Ur Specific [place] 1.025 (1.005-1.025) Urine Protein 100 (Negative) Urine Ketones SMALL (NEGATIVE) Urine Blood NEGATIVE (0-5) Fernando/ul Urine Nitrite NEGATIVE (NEGATIVE) Urine Bilirubin SMALL (NEGATIVE) Urine Urobilinogen 2 (0-1) mg/dL Ur Leukocyte Esterase NEGATIVE (NEGATIVE) Urine WBC (Auto) 3-5 (0-5) /HPF Urine RBC (Auto) NONE (0-2) /HPF U Hyaline Cast (Auto) >50 (0-2) /LPF U Epithel Cells (Auto) RARE (FEW) /HPF Urine Bacteria (Auto) FEW (NEGATIVE) /HPF Urine Mucus (Auto) MANY (NEGATIVE) /HPF Urine Culture Reflexed YES (NO) Urine Glucose NEGATIVE (NEGATIVE) mg/dL Influenza Type A Ag NEGATIVE (NEGATIVE) Influenza Type B Ag NEGATIVE (NEGATIVE) RSV (PCR) NEGATIVE (Negative) SARS-CoV-2 (PCR) NEGATIVE (NEGATIVE) 06/08/21 06/08/21 06/08/21 Range/Units 19:15 19:15 19:15 WBC (4.0-10.5) K/mm3 RBC (4.1-5.4) M/mm3 Hgb (12.0-16.0) gm/dl Hct (35-47) % MCV (78-100) fl MCH (26-32) pg MCHC (32-36) g/dl RDW (11.5-14.0) % Plt Count (150-450) K/mm3 MPV (7.5-11.0) fl Gran % (36.0-66.0) % Eos # (Auto) (0-0.5) Absolute Lymphs (auto) (1.0-4.6) Absolute Monos (auto) (0.0-1.3) Lymphocytes % (24.0-44.0) % Monocytes % (0.0-12.0) % Eosinophils % (0.00-5.0) % Basophils % (0.0-0.4) % Absolute Granulocytes (1.4-6.9) Basophils # (0-0.4) D-Dimer 1291 H* (215-500) ng/mL Sodium 140 (137-145) mmol/L Potassium 3.5 (3.5-5.1) mmol/L Chloride 107 (98-107) mmol/L Carbon Dioxide 19 L (22-30) mmol/L Anion Gap 17.2 H (5-15) MEQ/L BUN 11 (7-17) mg/dL Creatinine 0.90 (0.52-1.04) mg/dL Estimated GFR > 60.0 ML/MIN Glucose 142 H (74-106) mg/dL Calcium 9.7 (8.4-10.2) mg/dL Total Bilirubin 0.50 (0.2-1.3) mg/dL AST 16 (14-36) U/L ALT 9 (0-35) U/L Alkaline Phosphatase 102 (38-126) U/L Troponin I < 0.012 (0.000-0.034) ng/mL NT-Pro-B Natriuret Pep 136 (0-900) pg/mL Serum Total Protein 7.5 (6.3-8.2) g/dL Albumin 4.5 (3.5-5.0) g/dL Urine Color (YELLOW) Urine Appearance (CLEAR) Urine pH (5-6) Ur Specific [place] (1.005-1.025) Urine Protein (Negative) Urine Ketones (NEGATIVE) Urine Blood (0-5) Fernando/ul Urine Nitrite (NEGATIVE) Urine Bilirubin (NEGATIVE) Urine Urobilinogen (0-1) mg/dL Ur Leukocyte Esterase (NEGATIVE) Urine WBC (Auto) (0-5) /HPF Urine RBC (Auto) (0-2) /HPF U Hyaline Cast (Auto) (0-2) /LPF U Epithel Cells (Auto) (FEW) /HPF Urine Bacteria (Auto) (NEGATIVE) /HPF Urine Mucus (Auto) (NEGATIVE) /HPF Urine Culture Reflexed (NO) Urine Glucose (NEGATIVE) mg/dL Influenza Type A Ag (NEGATIVE) Influenza Type B Ag (NEGATIVE) RSV (PCR) (Negative) SARS-CoV-2 (PCR) (NEGATIVE) 06/08/21 Range/Units 19:15 WBC 12.6 H (4.0-10.5) K/mm3 RBC 4.84 (4.1-5.4) M/mm3 Hgb 14.9 (12.0-16.0) gm/dl Hct 47.2 H (35-47) % MCV 97.5 (78-100) fl MCH 30.8 (26-32) pg MCHC 31.6 L (32-36) g/dl RDW 13.7 (11.5-14.0) % Plt Count 277 (150-450) K/mm3 MPV 11.1 H (7.5-11.0) fl Gran % 91.5 H (36.0-66.0) % Eos # (Auto) 0.09 (0-0.5) Absolute Lymphs (auto) 0.71 L (1.0-4.6) Absolute Monos (auto) 0.25 (0.0-1.3) Lymphocytes % 5.7 L (24.0-44.0) % Monocytes % 2.0 (0.0-12.0) % Eosinophils % 0.7 (0.00-5.0) % Basophils % 0.1 (0.0-0.4) % Absolute Granulocytes 11.50 H (1.4-6.9) Basophils # 0.01 (0-0.4) D-Dimer (215-500) ng/mL Sodium (137-145) mmol/L Potassium (3.5-5.1) mmol/L Chloride (98-107) mmol/L Carbon Dioxide (22-30) mmol/L Anion Gap (5-15) MEQ/L BUN (7-17) mg/dL Creatinine (0.52-1.04) mg/dL Estimated GFR ML/MIN Glucose (74-106) mg/dL Calcium (8.4-10.2) mg/dL Total Bilirubin (0.2-1.3) mg/dL AST (14-36) U/L ALT (0-35) U/L Alkaline Phosphatase (38-126) U/L Troponin I (0.000-0.034) ng/mL NT-Pro-B Natriuret Pep (0-900) pg/mL Serum Total Protein (6.3-8.2) g/dL Albumin (3.5-5.0) g/dL Urine Color (YELLOW) Urine Appearance (CLEAR) Urine pH (5-6) Ur Specific [place] (1.005-1.025) Urine Protein (Negative) Urine Ketones (NEGATIVE) Urine Blood (0-5) Fernando/ul Urine Nitrite (NEGATIVE) Urine Bilirubin (NEGATIVE) Urine Urobilinogen (0-1) mg/dL Ur Leukocyte Esterase (NEGATIVE) Urine WBC (Auto) (0-5) /HPF Urine RBC (Auto) (0-2) /HPF U Hyaline Cast (Auto) (0-2) /LPF U Epithel Cells (Auto) (FEW) /HPF Urine Bacteria (Auto) (NEGATIVE) /HPF Urine Mucus (Auto) (NEGATIVE) /HPF Urine Culture Reflexed (NO) Urine Glucose (NEGATIVE) mg/dL Influenza Type A Ag (NEGATIVE) Influenza Type B Ag (NEGATIVE) RSV (PCR) (Negative) SARS-CoV-2 (PCR) (NEGATIVE) - Progress Progress: improved Air Movement: good Progress Note: Patient reassessed. Patient states she is still experiencing left-sided chest pain. EKG normal sinus rhythm. Troponin negative x2. Positive D-dimer. CTA chest negative for PE. Case discussed with Dr. Cheney. Dr. Cheney will admit for cardiac rule out. Plan of care discussed with patient. She agrees admission to [facility] for further evaluation. Morphine administered for ongoing chest pain. Covid test pending 06/08/21 23:00 Covid test negative. 06/09/21 00:42 Blood Culture(s) Obtained: No Antibiotics given: No Discussed with Dr.: Jazlyn Will see patient in: hospital (observation) Counseled pt/family regarding: lab results, diagnosis, rad results - Departure Departure Disposition: Observation Clinical Impression: Hyperventilation, Anxiety, Chest pain, ACS (acute coronary syndrome) Condition: Stable Critical Care Time: No Referrals: KARISSA GRAHAM NP [Primary Care Provider] - Follow up/PCP as directed
[2021-06-08] MEDS ORDERED: NITRO-BID 2% UD PACKETS ONE (19:11)
[2021-06-08] MEDS ORDERED: BABY ASPIRIN 81 MG CHEW ONE (19:11)
[2021-06-08 19:31] LABS: BASOPHIL % 0.1 % (0.0-0.4); Basophil (Absolute #) 0.01 (0-0.4); Eosinophil % 0.7 % (0.00-5.0); Eosinophil (Absolute #) 0.09 (0-0.5); Hematocrit 47.2 % (35-47); Hemoglobin 14.9 gm/dl (12.0-16.0); Lymphocyte (Absolute #) 0.71 (1.0-4.6); Lymphocytes % 5.7 % (24.0-44.0); Mean Cell Volume 97.5 fl (78-100); Mean Corpuscular Hemoglobin 30.8 pg (26-32); Mean Corpuscular Hgb Concent. 31.6 g/dl (32-36); Mean Platelet Volume 11.1 fl (7.5-11.0); Monocyte (Absolute #) 0.25 (0.0-1.3); Neutrophil % 91.5 % (36.0-66.0); Platelet Count 277 K/mm3 (150-450); Red Blood Count 4.84 M/mm3 (4.1-5.4); Red Cell Distribution Width 13.7 % (11.5-14.0); White Blood Count 12.6 K/mm3 (4.0-10.5)
[2021-06-08 19:58] LABS: ALBUMIN 4.5 g/dL (3.5-5.0); ALKALINE PHOSPHATASE 102 U/L (38-126); ANION GAP 17.2 MEQ/L (5-15); BLOOD UREA NITROGEN 11 mg/dL (7-17); CHLORIDE 107 mmol/L (98-107); Calcium 9.7 mg/dL (8.4-10.2); Carbon Dioxide 19 mmol/L (22-30); EST GLOMERULAR FILTRATION RATE > 60.0 ML/MIN; Glucose 142 mg/dL (74-106); NT PRO BNP 136 pg/mL (0-900); Potassium 3.5 mmol/L (3.5-5.1); SGOT/AST 16 U/L (14-36); SGPT/ALT 9 U/L (0-35); SODIUM 140 mmol/L (137-145); Total Protein 7.5 g/dL (6.3-8.2)
[2021-06-08 20:12] LABS: Appearance CLOUDY (CLEAR); Bacteria FEW /HPF (NEGATIVE); Bilirubin SMALL (NEGATIVE); Blood NEGATIVE Ery/ul (0-5); Epithelial Cells RARE /HPF (FEW); Glucose NEGATIVE (NEGATIVE); Hyaline Casts >50 /LPF (0-2); Ketones SMALL (NEGATIVE); Leukocyte Esterase NEGATIVE (NEGATIVE); Mucus MANY /HPF (NEGATIVE); Nitrite NEGATIVE (NEGATIVE); Protein,Urine Dip 100 (Negative); Specific Gravity 1.025 (1.005-1.025); Urobilinogen 2 mg/dL (0-1)
[2021-06-08] MEDS ORDERED: BENADRYL 50 MG/ML IV ONE (21:20)
[2021-06-08] MEDS ORDERED: BENADRYL 50 MG/ML ONE (21:21)
[2021-06-08] MEDS: Sodium Chloride 0.9% 1000 ML 1,000 ML IV SCH (21:22)
[2021-06-08] MEDS ORDERED: MORPHINE SULFATE 4 MG INJ IV ONE (23:00)
[2021-06-08] MEDS ORDERED: MORPHINE SULFATE 4 MG INJ ONE (23:00)
[2021-06-08] MEDS ORDERED: Zofran 4 MG/2 ML VIAL IV ONE (23:11)
[2021-06-08] MEDS ORDERED: Zofran 4 MG/2 ML VIAL ONE (23:12)
[2021-06-09 00:01] LABS: INFLUENZA A NEGATIVE (NEGATIVE); INFLUENZA B NEGATIVE (NEGATIVE); RESPIRATORY SYNCTIAL VIRUS NEGATIVE (Negative); SARS-CoV-2 Xpert Express NEGATIVE (NEGATIVE)
[2021-06-09] MEDS ORDERED: MILK OF MAGNESIA 30 ML PO PRN (00:54)
[2021-06-09] MEDS ORDERED: TYLENOL 325 MG PO PRN (00:54)
[2021-06-09] MEDS ORDERED: MAALOX ES 30 ML UNIT DOSE PO PRN (00:54)
[2021-06-09] MEDS ORDERED: Senokot-S Tablet PO PRN (00:54)
[2021-06-09] MEDS ORDERED: Zofran 4 MG/2 ML VIAL IV PRN (00:54)
[2021-06-09] MEDS ORDERED: XANAX 1 MG PO PRN (02:14)
[2021-06-09] MEDS ORDERED: Requip 0.5 MG PO SCH (02:18)
[2021-06-09] MEDS ORDERED: TOPIRAMATE PO SCH (02:19)
[2021-06-09] MEDS ORDERED: ZOCOR 20MG PO SCH (02:21)
[2021-06-09] MEDS: Zanaflex 4 MG PO SCH ×2 (02:26→08:01)
[2021-06-09] MEDS: Sodium Chloride 0.9% 1000 ML 1,000 ML IV SCH ×2 (02:29→06:23)
[2021-06-09] MEDS: Klor Con 10 MEQ PO SCH ×2 (02:39→08:01)
[2021-06-09 08:15] VITALS: BP 72/40; PULSE 60; O2SAT 94
--- NOTE | 2021-06-09 08:34 | XRAY ---
Indication: Chest pain, nausea, vomiting, diarrhea. Comparison: February 07, 2021. Portable chest remains hyperinflated and clear. Heart not enlarged. Bony thorax intact again with mild osteopenia and degenerative changes. No new/acute findings.
--- NOTE | 2021-06-09 08:34 | XRAY ---
Indication: Chest pain, short of breath, nausea, vomiting, diarrhea. Elevated d-dimer. Multiple contiguous axial images obtained through the chest using 80 cc Isovue 370 contrast and PE protocol. Comparison: None. There is good opacification of the pulmonary arteries to include the lobar and segmental branches. No pulmonary embolus. Heart not enlarged. Aorta is normal in course and caliber without aneurysm/dissection. No pathologic mediastinal/hilar lymphadenopathy. Lungs are inflated with minimal medial right mid lung subsegmental atelectasis/scarring. No suspicious pulmonary mass, infiltrates, or effusion. Bony thorax is intact with mild degenerative changes throughout the spine. Limited upper abdomen demonstrates mild fatty liver and 2.4 cm right renal cyst. Impression: 1. Negative pulmonary embolus. No acute cardiopulmonary abnormalities. 2. Incidental fatty liver, right renal cyst, and bony findings. Comment: Preliminary interpretation by [facility]. No critical discrepancy.
[2021-06-09] MEDS ORDERED: MOTRIN 600 MG PO PRN (09:28)
[2021-06-09] MEDS ORDERED: Ecotrin 325 MG PO SCH (10:00)
[2021-06-09] MEDS ORDERED: GI COCKTAIL 45 ML (Maalox/Lidocaine) PO ONE (11:36)
== END 2021-06-09 12:10 | disposition home or self-care (01) ==
LOC: ED 18:53 → MED SURG 06-09 00:53
PROVIDERS: ADMIT Family Medicine; ATTEND Family Medicine
DX: R07.9 Chest pain, unspecified (principal); I24.9 Acute ischemic heart disease, unspecified; R06.4 Hyperventilation; R11.2 Nausea with vomiting, unspecified; R19.7 Diarrhea, unspecified; F41.9 Anxiety disorder, unspecified; F17.200 Nicotine dependence, unspecified, uncomplicated; Z20.828 Contact with and (suspected) exposure to other viral communicable diseases; Z79.899 Other long term (current) drug therapy
CPT/HCPCS: 0241U; 36000; 36415; 71045; 71260; 80053; 80061; 81001; 83721; 83880; 84484; 85025; 85379; 87086; 93005; 93041; 93268; 94760; 96374; 96375; 99285; G0378; J1200; J2270; J2405; A9270-GY

== ENCOUNTER 2021-09-17 21:25 | Emergency (ER) | payer OTHER ==
[2021-09-17] MEDS ORDERED: XYLOCAINE 1% HCL 20 ML MDV IJ ONE (21:26)
--- NOTE | 2021-09-17 21:35 | ERPHSYRPT ---
- History of Present Illness Time Seen by Provider: 09/17/21 21:35 Source: patient Exam Limitations: no limitations Physician History: This is a 51-year-old white female who was diagnosed with a urinary tract infection 3 days ago and was given a prescription for Levaquin. She is taken 3 doses of the Levaquin 250 mg each day. In the last 24 to 36 hours her symptoms have actually worsened. She has right flank pain and she aches all over. She also has been having some chills. She has no chest pain. She has no shortness of breath. She has no abdominal pain. Timing/Duration: day(s) (3), worse Activites at Onset: none Quality: aching Onset Location: right flank Severity of Pain-Max: moderate Severity of Pain-Current: moderate Prior abdominal problems: none Sexual intercourse history: non-contributory Modifying Factors: Improves With: nothing Associated Symptoms: fever, chills, nausea Allergies/Adverse Reactions: Sulfa (Sulfonamide Antibiotics) Allergy (Verified 09/17/21 21:57) Home Medications: ALPRAZolam 1 MG [Xanax 1 mg] 1 mg PO TID PRN PRN 05/22/18 [History] Loratadine 10 mg [Claritin 10 mg] 10 mg PO DAILY 05/22/18 [History] Potassium Chloride 10 Meq Tab* [Klor Con 10 MEQ] 10 meq PO BID 05/22/18 [History] Pravastatin Sodium 40 mg PO HS 05/22/18 [History] Topiramate [Topiramate ER] 150 mg PO HS 05/22/18 [History] estradioL [Estradiol] 2 mg PO DAILY 05/22/18 [History] Tizanidine HCl 4 mg [Zanaflex 4 MG] 4 mg PO BID 04/29/19 [History] Bupropion HCl Xl 150 mg [Wellbutrin XL 150 MG] 150 mg PO DAILY 06/08/21 [History] Buspirone HCl 5 mg [Buspar 5 mg] 15 mg PO BID 06/08/21 [History] Famotidine 20 mg [Pepcid 20 MG] 40 mg PO DAILY 06/08/21 [History] Ropinirole HCl 1 mg PO HS 06/09/21 [History] Hx Tetanus, Diphtheria Vaccination/Date Given: Yes Hx Influenza Vaccination/Date Given: Yes Hx Pneumococcal Vaccination/Date Given: No Travel Risk - International Travel Have you traveled outside of the country in past 3 weeks: No - Coronavirus Screening Are you exhibiting any of the following symptoms?: No Close contact with a COVID-19 positive Pt in past 14-21 Days: No - Vaccine Status Have you recieved a Covid-19 vaccination: Yes 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 - Vaccination Dates Date of 2cond Vaccination (if applicable): unknown - Review of Systems Constitutional: Chills Eyes: No Symptoms Ears, Nose, & Throat: No Symptoms Respiratory: No Symptoms Cardiac: No Symptoms Abdominal/Gastrointestinal: Nausea, No Diarrhea Genitourinary Symptoms: No Symptoms, Flank Pain Musculoskeletal: Arthralgias, Myalgias Skin: No Symptoms (Right) Neurological: No Symptoms Psychological: No Symptoms Endocrine: No Symptoms Hematologic/Lymphatic: No Symptoms Immunological/Allergic: No Symptoms All Other Systems: Reviewed and Negative - Past Medical History Pertinent Past Medical History: Yes Neurological History: Seizures ENT History: No Pertinent History Cardiac History: Angina, High Cholesterol Respiratory History: No Pertinent History Endocrine Medical History: No Pertinent History Musculoskeletal History: Degenerative Disk Disease GI Medical History: No Pertinent History History: No Pertinent History Psycho-Social History: Anxiety Female Reproductive Disorders: No Pertinent History Other Medical History: PATIENT STATES HX OF ONE SEIZURE BUT IS ON MEDICATION AND NO RECENT EPISODES. ALSO RECENT WORKUP FOR ANGINA. ALL TESTS INCLUDING STRESS TEST HAVE BEEN NEGATIVE FOR ANYTHING CARDIAC. - Past Surgical History Past Surgical History: Yes Neuro Surgical History: No Pertinent History Cardiac: No Pertinent History Respiratory: No Pertinent History Gastrointestinal: Cholecystectomy Genitourinary: No Pertinent History Musculoskeletal: Other Female Surgical History: Hysterectomy, Tubal Ligation Other Surgical History: sinus, carpal tunnel release - Social History Smoking Status: Current every day smoker How long have you smoked: 40 Exposure to second hand smoke: Yes Drug Use: marijuana Patient Lives Alone: No - Nursing Vital Signs Nursing Vital Signs: Initial Vital Signs Temperature 97.9 F 09/17/21 21:38 Pulse Rate 66 09/17/21 21:38 Respiratory Rate 16 09/17/21 21:38 Blood Pressure 110/68 09/17/21 21:38 O2 Sat by Pulse Oximetry 100 09/17/21 21:38 Pain Scale Pain Intensity 9 - Physical Exam General Appearance: no apparent distress, alert, anxiety Eye Exam: PERRL/EOMI, eyes nml inspection Ears, Nose, Throat Exam: normal ENT inspection, moist mucous membranes Neck Exam: normal inspection, non-tender, supple, full range of motion Respiratory Exam: normal breath sounds, lungs clear, airway intact, No chest tenderness, No respiratory distress Cardiovascular Exam: regular rate/rhythm, normal heart sounds, normal peripheral pulses Gastrointestinal/Abdomen Exam: soft, normal bowel sounds, No tenderness, No guarding Pelvic Exam: not done Rectal Exam: not done Back Exam: normal inspection, normal range of motion, CVA tenderness (Mild right side to percussion), No vertebral tenderness Extremity Exam: normal inspection, normal range of motion, pelvis stable Neurologic Exam: alert, oriented x 3, 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, 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, normal mood/affect, nml cerebellar function, nml station & gait, sensation nml Skin Exam: normal color, warm, dry Lymphatic Exam: No adenopathy SpO2 Interpretation: normal O2 Delivery: Room Air - Course Nursing assessment & vital signs reviewed: Yes Ordered Tests: Active Orders 24 hr Category Date Time Status ABDOMEN AND PELVIS W/0 CONTRAS [CT] Stat Exams 09/17/21 22:01 Taken Medication Summary Discontinued Medications Generic Name Dose Route Start Last Admin Trade Name Josiah PRN Reason Stop Dose Admin Hydrocodone Bitart/Acetaminophen 2 tab 09/17/21 23:14 Hydrocodone/Apap 5/325 Mg Tablet PO 09/17/21 23:15 SENT HOME W/ PATIENT ONE Ceftriaxone Sodium 1,000 mg 09/17/21 23:04 Ceftriaxone Sodium 1000 Mg Inj Vial IM 09/17/21 23:05 STAT ONE Ceftriaxone Sodium Confirm 09/17/21 23:21 Ceftriaxone Sodium 1000 Mg Inj Vial Administered 09/17/21 23:22 Dose 1,000 mg .ROUTE .STK-MED ONE Hydromorphone HCl 1 mg 09/17/21 23:04 Hydromorphone 1 Mg/1ml Inj 1 Mg/Ml Syringe IM 09/17/21 23:05 STAT ONE Hydromorphone HCl Confirm 09/17/21 23:21 Hydromorphone 1 Mg/1ml Inj 1 Mg/Ml Syringe Administered 09/17/21 23:22 Dose 1 mg .ROUTE .STK-MED ONE Ondansetron HCl 4 mg 09/17/21 23:05 Zofran 4 Mg/Udtablet Orally Disintegrating PO 09/17/21 23:06 STAT ONE Ondansetron HCl 8 mg 09/17/21 23:16 Zofran 4 Mg/Udtablet Orally Disintegrating PO 09/17/21 23:17 STAT ONE Ondansetron HCl Confirm 09/17/21 23:21 Zofran 4 Mg/Udtablet Orally Disintegrating Administered 09/17/21 23:22 Dose 4 mg .ROUTE .STK-MED ONE Lab/Rad Data: Laboratory Results 09/17/21 Range/Units 22:01 Urinalys Dipstick Clnc MAIN LAB Urine Color YELLOW (YELLOW) Urine Appearance CLEAR (CLEAR) Urine pH 5.5 (5-6) Ur Specific [place] >=1.030 (1.005-1.025) POC Urine Protein Conf NEGATIVE (Negative) Urine Ketones NEGATIVE (NEGATIVE) Urine Nitrite NEGATIVE (NEGATIVE) Urine Bilirubin NEGATIVE (NEGATIVE) Urine Urobilinogen 0.2 (0-1) mg/dL Urine Leukocytes NEGATIVE (NEGATIVE) Urine WBC (Auto) 0-2 (0-5) /HPF Urine RBC (Auto) NONE (0-2) /HPF U Epithel Cells (Auto) RARE (FEW) /HPF Urine Bacteria (Auto) NONE SEEN (NEGATIVE) /HPF Urine RBC NEGATIVE (0-5) Fernando/ul Urine Mucus (Auto) SLIGHT (NEGATIVE) /HPF Ur Culture Indicated? NO Urine Glucose NEGATIVE (NEGATIVE) mg/dL - Progress Progress: improved, re-examined Air Movement: good Progress Note: 09/17/21 23:22 CAT scan of the abdomen and pelvis without contrast shows a picture consistent with right pyelonephritis. There is also some mild right hydronephrosis/edema 09/17/21 23:23 Patient was given a prescription of 7 days of Levaquin 250 mg orally. This does seems low to me. I will boost her with an intramuscular dose of 1 g of Rocephin and then increase her daily dose of Levaquin to 500 mg daily over the remaining number of days that she has left. We will also provide her with outpa tient pain medication and antiemetic. Blood Culture(s) Obtained: No Antibiotics given: Yes Counseled pt/family regarding: lab results, diagnosis, rad results - Departure Departure Disposition: Home Clinical Impression: Pyelonephritis Condition: Stable Critical Care Time: No Referrals: NISHANT GRAY MD [Primary Care Provider] - Follow up/PCP as directed Additional Instructions: Drink plenty of fluids. Use ibuprofen 600 mg orally 3 times a day with food for the next 5 days. Increase your Levaquin antibiotic to 500 mg a day starting tomorrow. 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 Follow-up with your prescribing physician next week for further evaluation and management. Prescriptions: Hydrocodone/APAP 5/325 [[place] 5/325 mg] 1 each PO Q6H PRN PRN #10 tablet MDD 4 PRN Reason: Pain Ondansetron ODT 4 MG [Zofran Odt 4 mg] 4 mg PO Q6H PRN PRN #10 tablet PRN Reason: Vomiting Levofloxacin [Levofloxacin 250MG Tablet] 250 mg PO DAILY #4 tab
[2021-09-17 22:18] LABS: Epithelial Cells RARE /HPF (FEW); Mucus SLIGHT /HPF (NEGATIVE); WBC 0-2 /HPF (0-5)
[2021-09-17 22:19] LABS: Appearance CLEAR (CLEAR); Bilirubin NEGATIVE (NEGATIVE); Dipstick done @ ? MAIN LAB; Glucose NEGATIVE (NEGATIVE); Ketones NEGATIVE (NEGATIVE); Nitrite NEGATIVE (NEGATIVE); Ph 5.5 (5-6); Protein,Urine Dip NEGATIVE (Negative); RBC NEGATIVE Ery/ul (0-5); Specific Gravity >=1.030 (1.005-1.025); Urobilinogen 0.2 mg/dL (0-1)
[2021-09-17 22:20] LABS: Bacteria NONE SEEN /HPF (NEGATIVE); Urine Cultured Indicated? NO
[2021-09-17] MEDS ORDERED: Hydromorphone 1 mg/ml Injection IM ONE (23:04)
[2021-09-17] MEDS ORDERED: Rocephin 1000 MG INJ IM ONE (23:04)
[2021-09-17] MEDS ORDERED: ZOFRAN ODT 4 MG PO ONE ×2 (23:05→23:16)
[2021-09-17] MEDS ORDERED: NORCO 5/325 MG PO ONE (23:14)
[2021-09-17] MEDS ORDERED: ZOFRAN ODT 4 MG ONE ×2 (23:21→23:53)
[2021-09-17] MEDS ORDERED: Rocephin 1000 MG INJ ONE (23:21)
[2021-09-17] MEDS ORDERED: Hydromorphone 1 mg/ml Injection ONE (23:21)
[2021-09-17] MEDS ORDERED: NORCO 5/325 MG ONE (23:53)
[2021-09-18 00:09] VITALS: BP 103/67; PULSE 62; O2SAT 97
--- NOTE | 2021-09-18 08:56 | XRAY ---
Indication: Abdomen and pelvic pain. UTI. Nausea. Multiple contiguous axial images obtained through the abdomen and pelvis without contrast. Comparison: January 11, 2021 Lung bases remain clear. Heart not enlarged. Noncontrasted stomach and bowel loops nonobstructed. Normal appendix. There is now mild diffuse scattered colonic fecal debris throughout. No free fluid/air. Right kidney demonstrates new minimal perinephric stranding, possible inflammatory/infectious process. Stable right renal cyst, hysterectomy, and cholecystectomy. Nonobstructing right renal punctate calculus not well seen on previous contrasted exam. Remaining liver, pancreas, spleen, adrenal glands, kidneys, ureters, and bladder appear unremarkable for noncontrast exam. Again minimal aortoiliac calcifications without AAA. Osseous structures intact again with minimal/mild degenerative changes throughout the spine and both hips. Impression: 1. Right perinephric stranding presumed known UTI. 2. Again incidental right renal cyst, nonobstructing left renal micro-calculus, and chronic bony findings. Comment: Preliminary interpretation made by C. No critical discrepancy.
== END 2021-09-18 00:07 | disposition home or self-care (01) ==
LOC: ED 21:25
DX: N12 Tubulo-interstitial nephritis, not specified as acute or chronic (principal); R10.31 Right lower quadrant pain; R10.11 Right upper quadrant pain; R50.9 Fever, unspecified; R11.0 Nausea; E78.5 Hyperlipidemia, unspecified; Z79.899 Other long term (current) drug therapy; Z72.0 Tobacco use; Z79.891 Long term (current) use of opiate analgesic
CPT/HCPCS: 74176; 81015; 96372; 99284; J0696; J1170; Q0162; A9270-GY

== ENCOUNTER 2021-12-27 08:48 | Emergency (ER) | payer OTHER ==
--- NOTE | 2021-12-27 08:56 | ERPHSYRPT ---
- History of Present Illness Time Seen by Provider: 12/27/21 08:56 Source: patient Exam Limitations: no limitations Physician History: This is a thin 51-year-old anxious white female patient of Dr. Gray who presents with dizziness that began this morning at her appointment for physical therapy. Patient has a prescription for tramadol and she took her prescribed dose this morning in anticipation of physical therapy. The last time she took tramadol was 1 week ago[address] Patient sees Dr. Crowell for pain control. Patient denies any new medication use. Patient is a current daily smoker of cigarettes. She occasionally uses marijuana. Patient has a history of seizure disorder, chronic angina, degenerative disc disease and elevated cholesterol. Patient states that she has been eating and drinking well. Patient states she did not have these symptoms when she woke up this morning. She denies chest pain. She denies shortness of breath. She denies abdominal pain. She has no nausea vomiting or diarrhea. Patient has lost 80 pounds in approximately 1 year. Timing/Duration: today Severity: mild (To moderate) Character of Deficits: none Deficits: no difficulties Baseline/Normal Cognition: alert oriented x 3 Current Cognition: alert oriented x 3 Baseline Gait: walks w/o assistance Associated Symptoms: denies symptoms Allergies/Adverse Reactions: Sulfa (Sulfonamide Antibiotics) Allergy (Verified 12/27/21 09:20) Home Medications: ALPRAZolam 1 MG [Xanax 1 mg] 1 mg PO TID PRN PRN 05/22/18 [History] Loratadine 10 mg [Claritin 10 mg] 10 mg PO DAILY 05/22/18 [History] Potassium Chloride Tab* [Klor Con] 10 meq PO BID 05/22/18 [History] Pravastatin Sodium 40 mg PO HS 05/22/18 [History] Topiramate [Topiramate ER] 150 mg PO HS 05/22/18 [History] estradioL [Estradiol] 2 mg PO DAILY 05/22/18 [History] Tizanidine HCl 4 mg [Zanaflex 4 MG] 4 mg PO BID 04/29/19 [History] Bupropion HCl Xl 150 mg [Wellbutrin XL 150 MG] 150 mg PO DAILY 06/08/21 [History] Buspirone HCl 5 mg [Buspar 5 mg] 15 mg PO BID 06/08/21 [History] Famotidine 20 mg [Pepcid 20 MG] 40 mg PO DAILY 06/08/21 [History] Ropinirole HCl 1 mg PO HS 06/09/21 [History] Hx Tetanus, Diphtheria Vaccination/Date Given: Yes Hx Influenza Vaccination/Date Given: Yes Hx Pneumococcal Vaccination/Date Given: No Travel Risk - International Travel Have you traveled outside of the country in past 3 weeks: No - Coronavirus Screening Are you exhibiting any of the following symptoms?: No Close contact with a COVID-19 positive Pt in past 14-21 Days: No - Vaccine Status Have you recieved a Covid-19 vaccination: Yes 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[place] - Vaccination Dates Date of 2cond Vaccination (if applicable): unknown - Review of Systems Constitutional: No Symptoms Eyes: No Symptoms Ears, Nose, & Throat: No Symptoms Respiratory: No Symptoms Cardiac: No Symptoms Abdominal/Gastrointestinal: No Symptoms Genitourinary Symptoms: No Symptoms Musculoskeletal: No Symptoms Skin: No Symptoms Neurological: No Symptoms Psychological: No Symptoms Endocrine: No Symptoms Hematologic/Lymphatic: No Symptoms Immunological/Allergic: No Symptoms All Other Systems: Reviewed and Negative - Past Medical History Pertinent Past Medical History: Yes Neurological History: Peripheral Neuropathy, Seizures ENT History: No Pertinent History Cardiac History: Angina, High Cholesterol Respiratory History: No Pertinent History Endocrine Medical History: No Pertinent History Musculoskeletal History: Degenerative Disk Disease GI Medical History: No Pertinent History History: No Pertinent History Psycho-Social History: Anxiety Female Reproductive Disorders: No Pertinent History Other Medical History: PATIENT STATES HX OF ONE SEIZURE BUT IS ON MEDICATION AND NO RECENT EPISODES. - Past Surgical History Past Surgical History: Yes Neuro Surgical History: No Pertinent History Cardiac: No Pertinent History Respiratory: No Pertinent History Gastrointestinal: Cholecystectomy Genitourinary: No Pertinent History Musculoskeletal: Other Female Surgical History: Hysterectomy, Tubal Ligation Other Surgical History: sinus, carpal tunnel release - Social History Smoking Status: Current every day smoker How long have you smoked: 40 Exposure to second hand smoke: Yes Drug Use: marijuana Patient Lives Alone: No - Nursing Vital Signs Nursing Vital Signs: Initial Vital Signs Temperature 97.6 F 12/27/21 09:10 Pulse Rate 57 L 12/27/21 09:10 Respiratory Rate 16 12/27/21 09:10 Blood Pressure 106/35 12/27/21 09:10 O2 Sat by Pulse Oximetry 100 12/27/21 09:10 Pain Scale Pain Intensity 0 - [place] Coma Scale Best Eye Response (Kate): (4) open spontaneously Best Verbal Response ([place]): (5) oriented Best Motor Response ([place]): (6) obeys commands [place] Total: 15 - Physical Exam General Appearance: no apparent distress, alert, anxiety, thin Eye Exam: bilateral eye: normal inspection, PERRL, EOMI Ears, Nose, Throat Exam: normal ENT inspection, moist mucous membranes Neck Exam: normal inspection, non-tender, supple, full range of motion Respiratory: normal breath sounds, lungs clear, airway intact, No chest tenderness, No respiratory distress Cardiovascular: normal heart sounds, normal peripheral pulses, bradycardia Gastrointestinal: soft, normal bowel sounds, No tenderness Pelvic Exam: not done Rectal Exam: not done Back Exam: normal inspection, normal range of motion, No CVA tenderness, No vertebral tenderness Extremity Exam: normal inspection, normal range of motion, pelvis stable Mental Status: alert, oriented x 3, 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 Exam: normal hearing, normal speech, PERRL, tongue midline Coordination/Gait: normal gait, normal cerebellar function Motor/Sensory: no motor deficit, no sensory deficit, no pronator drift Skin Exam: normal color, warm, dry SpO2 Interpretation: normal O2 Delivery: Room Air - Course Nursing assessment & vital signs reviewed: Yes EKG Interpreted by Me: RATE (47), Sinus Vinod, NORMAL AXIS, NORMAL INTERVALS, NORMAL QRS, NORMAL ST-T, Other Ordered Tests: Active Orders 24 hr Category Date Time Status Clean Catch Urine Specimen STAT Care 12/27/21 09:26 Active EKG-ER Only STAT Care 12/27/21 08:56 Active IV Insertion STAT Care 12/27/21 08:56 Active HEAD WITHOUT CONTRAST [CT] Stat Exams 12/27/21 08:56 Completed CBC W DIFF Stat Lab 12/27/21 09:20 Completed CMP Stat Lab 12/27/21 09:20 Completed MAGNESIUM Stat Lab 12/27/21 09:20 Completed TROPONIN Q3H Lab 12/27/21 09:20 Completed TROPONIN Q3H Lab 12/27/21 12:00 Ordered TROPONIN Q3H Lab 12/27/21 15:00 Ordered TROPONIN Q3H Lab 12/27/21 18:00 Ordered TROPONIN Q3H Lab 12/27/21 21:00 Ordered UA W/RFX CULTURE Stat Lab 12/27/21 09:07 Completed Urine Triage Profile Stat Lab 12/27/21 09:28 Completed Medication Summary Discontinued Medications Generic Name Dose Route Start Last Admin Trade Name Josiah PRN Reason Stop Dose Admin Sodium Chloride 1,000 mls @ 999 mls/hr 12/27/21 09:26 12/27/21 10:50 Sodium Chloride 0.9% 1000 Ml IV 12/27/21 10:26 Infused .Q1H1M STA Infusion Sodium Chloride Confirm 12/27/21 09:29 Sodium Chloride 0.9% 1000 Ml Administered 12/27/21 09:30 Dose 1,000 mls @ ud .ROUTE .STK-MED ONE Lab/Rad Data: Laboratory Result Diagrams 12/27/21 09:20 12/27/21 09:20 Laboratory Results 12/27/21 12/27/21 12/27/21 Range/Units 09:28 09:20 09:20 WBC (4.0-10.5) x10^3/uL RBC (4.1-5.4) x10^6/uL Hgb (12.0-16.0) g/dL Hct (35-47) % MCV (78-100) fL MCH (26-32) pg MCHC (32-36) g/dL RDW (11.5-14.0) % Plt Count (150-450) x10^3/uL MPV (7.5-11.0) fL Gran % (36.0-66.0) % Immature Gran % (Auto) (0.00-0.4) % Nucleat RBC Rel Count (0.00-0.1) % Eos # (Auto) (0-0.5) x10^3/uL Immature Gran # (Auto) (0.00-0.03) x10^3u/L Absolute Lymphs (auto) (1.0-4.6) x10^3/uL Absolute Monos (auto) (0.0-1.3) x10^3/uL Absolute Nucleated RBC (0.00-0.01) x10^3u/L Lymphocytes % (24.0-44.0) % Monocytes % (0.0-12.0) % Eosinophils % (0.00-5.0) % Basophils % (0.0-0.4) % Absolute Granulocytes (1.4-6.9) x10^3/uL Basophils # (0-0.4) x10^3/uL Sodium 139 (137-145) mmol/L Potassium 3.3 L (3.5-5.1) mmol/L Chloride 108 H (98-107) mmol/L Carbon Dioxide 25 (22-30) mmol/L Anion Gap 10.1 (5-15) MEQ/L BUN 8 (7-17) mg/dL Creatinine 0.80 (0.52-1.04) mg/dL Estimated GFR > 60.0 ML/MIN Glucose 77 (74-106) mg/dL Calcium 8.6 (8.4-10.2) mg/dL Magnesium 2.0 (1.6-2.3) mg/dL Total Bilirubin 0.30 (0.2-1.3) mg/dL AST 18 (14-36) U/L ALT 10 (0-35) U/L Alkaline Phosphatase 61 (38-126) U/L Troponin I < 0.012 (0.000-0.034) ng/mL Serum Total Protein 6.5 (6.3-8.2) g/dL Albumin 3.6 (3.5-5.0) g/dL Urinalys Dipstick Clnc Urine Color (YELLOW) Urine Appearance (CLEAR) Urine pH (5-6) Ur Specific [place] (1.005-1.025) POC Urine Protein Conf (Negative) Urine Ketones (NEGATIVE) Urine Nitrite (NEGATIVE) Urine Bilirubin (NEGATIVE) Urine Urobilinogen (0-1) mg/dL Urine Leukocytes (NEGATIVE) Urine WBC (Auto) (0-5) /HPF Urine RBC (Auto) (0-2) /HPF U Epithel Cells (Auto) (FEW) /HPF Urine Bacteria (Auto) (NEGATIVE) /HPF Urine RBC (0-5) Fernando/ul Urine Mucus (Auto) (NEGATIVE) /HPF Ur Culture Indicated? Urine Glucose (NEGATIVE) mg/dL Urine Opiates Level NEGATIVE (NEGATIVE) Ur Methadone NEGATIVE (NEGATIVE) Urine Barbiturates NEGATIVE (NEGATIVE) Ur Phencyclidine (PCP) NEGATIVE (NEGATIVE) Urine Amphetamine POSITIVE (NEGATIVE) U Benzodiazepine Level POSITIVE (NEGATIVE) Urine Cocaine NEGATIVE (NEGATIVE) Urine Marijuana (THC) POSITIVE (NEGATIVE) 12/27/21 12/27/21 Range/Units 09:20 09:07 WBC 4.4 (4.0-10.5) x10^3/uL RBC 3.65 L (4.1-5.4) x10^6/uL Hgb 11.6 L (12.0-16.0) g/dL Hct 36.5 (35-47) % MCV 100.0 (78-100) fL MCH 31.8 (26-32) pg MCHC 31.8 L (32-36) g/dL RDW 12.9 (11.5-14.0) % Plt Count 174 (150-450) x10^3/uL MPV 10.5 (7.5-11.0) fL Gran % 50.5 (36.0-66.0) % Immature Gran % (Auto) 0.0 (0.00-0.4) % Nucleat RBC Rel Count 0.0 (0.00-0.1) % Eos # (Auto) 0 (0-0.5) x10^3/uL Immature Gran # (Auto) 0.00 (0.00-0.03) x10^3u/L Absolute Lymphs (auto) 1.79 (1.0-4.6) x10^3/uL Absolute Monos (auto) 0.30 (0.0-1.3) x10^3/uL Absolute Nucleated RBC 0.00 (0.00-0.01) x10^3u/L Lymphocytes % 40.9 (24.0-44.0) % Monocytes % 6.8 (0.0-12.0) % Eosinophils % 0.0 (0.00-5.0) % Basophils % 1.8 (0.0-0.4) % Absolute Granulocytes 2.21 (1.4-6.9) x10^3/uL Basophils # 0.08 (0-0.4) x10^3/uL Sodium (137-145) mmol/L Potassium (3.5-5.1) mmol/L Chloride (98-107) mmol/L Carbon Dioxide (22-30) mmol/L Anion Gap (5-15) MEQ/L BUN (7-17) mg/dL Creatinine (0.52-1.04) mg/dL Estimated GFR ML/MIN Glucose (74-106) mg/dL Calcium (8.4-10.2) mg/dL Magnesium (1.6-2.3) mg/dL Total Bilirubin (0.2-1.3) mg/dL AST (14-36) U/L ALT (0-35) U/L Alkaline Phosphatase (38-126) U/L Troponin I (0.000-0.034) ng/mL Serum Total Protein (6.3-8.2) g/dL Albumin (3.5-5.0) g/dL Urinalys Dipstick Clnc MAIN LAB Urine Color YELLOW (YELLOW) Urine Appearance CLEAR (CLEAR) Urine pH 6.0 (5-6) Ur Specific [place] 1.020 (1.005-1.025) POC Urine Protein Conf NEGATIVE (Negative) Urine Ketones NEGATIVE (NEGATIVE) Urine Nitrite NEGATIVE (NEGATIVE) Urine Bilirubin NEGATIVE (NEGATIVE) Urine Urobilinogen 0.2 (0-1) mg/dL Urine Leukocytes NEGATIVE (NEGATIVE) Urine WBC (Auto) NONE (0-5) /HPF Urine RBC (Auto) NONE SEEN (0-2) /HPF U Epithel Cells (Auto) NONE (FEW) /HPF Urine Bacteria (Auto) NONE (NEGATIVE) /HPF Urine RBC NEGATIVE (0-5) Fernando/ul Urine Mucus (Auto) SLIGHT (NEGATIVE) /HPF Ur Culture Indicated? NO Urine Glucose NEGATIVE (NEGATIVE) mg/dL Urine Opiates Level (NEGATIVE) Ur Methadone (NEGATIVE) Urine Barbiturates (NEGATIVE) Ur Phencyclidine (PCP) (NEGATIVE) Urine Amphetamine (NEGATIVE) U Benzodiazepine Level (NEGATIVE) Urine Cocaine (NEGATIVE) Urine Marijuana (THC) (NEGATIVE) - Progress Progress: improved, re-examined Progress Note: 12/27/21 10:[address] scan of head/brain without contrast 12/27/21 11:51 Medical decision making: I did speak with Dr. Gray regarding this patient and the results of radiographic and laboratory studies. Patient no longer feels dizzy but does not feel completely normal at this time. She has no shortness of breath and she has no chest pain. She has no abdominal pain. We had her up and walking moving around. Patient's heart rate is in the 50s and systolic blood pressure is in the 90s. Dr. Gray, the patient's primary care doctor, stated that if the patient wants to be admitted and observed that is okay with him. If the patient wants to go home on Holter monitor that is also okay. Patient currently states she is not symptomatic. I will discuss the above with the patient and determine what she wants to do at this point. 12/27/21 12:07 I reassessed the patient prior to discharge to home and the patient does not want to come into the hospital. She has no chest pain. She has no dizziness. She has no shortness of breath. Her heart rate is in the mid 50s and her systolic blood pressure is now 100. Counseled pt/family regarding: lab results, diagnosis, need for follow-up, rad results - Departure Departure Disposition: Home Clinical Impression: Bradycardia, Dizziness Condition: Stable Critical Care Time: No Referrals: NISHANT GRAY MD [Primary Care Provider] - Follow up/PCP as directed Additional Instructions: Drink plenty of fluids. Stop your benzodiazepine and marijuana use as well as your tramadol use while wearing your cardiac Holter monitor. Return to the emergency department if symptoms recur. Follow-up with your primary care physician tomorrow morning to make arranges for follow-up appointment as an outpatient.
[2021-12-27] MEDS ORDERED: Sodium Chloride 0.9% 1000 ML 1,000 ML IV STA (09:26)
[2021-12-27] MEDS ORDERED: Sodium Chloride 0.9% 1000 ML 1,000 ML ONE (09:29)
[2021-12-27 09:35] LABS: Absolute Neutrophil Ct (ANC) 2.21 x10^3/uL (1.4-6.9); Basophil (Absolute #) 0.08 x10^3/uL (0-0.4); Eosinophil (Absolute #) 0 x10^3/uL (0-0.5); Hematocrit 36.5 % (35-47); Hemoglobin 11.6 g/dL (12.0-16.0); Lymphocyte (Absolute #) 1.79 x10^3/uL (1.0-4.6); Lymphocytes % 40.9 % (24.0-44.0); Mean Corpuscular Hemoglobin 31.8 pg (26-32); Mean Corpuscular Hgb Concent. 31.8 g/dL (32-36); Mean Platelet Volume 10.5 fL (7.5-11.0); Monocytes % 6.8 % (0.0-12.0); Neutrophil % 50.5 % (36.0-66.0); Platelet Count 174 x10^3/uL (150-450); Red Blood Count 3.65 x10^6/uL (4.1-5.4); Red Cell Distribution Width 12.9 % (11.5-14.0); White Blood Count 4.4 x10^3/uL (4.0-10.5)
[2021-12-27 09:40] LABS: Mucus SLIGHT /HPF (NEGATIVE)
[2021-12-27 09:41] LABS: Appearance CLEAR (CLEAR); Bilirubin NEGATIVE (NEGATIVE); Dipstick done @ ? MAIN LAB; Glucose NEGATIVE (NEGATIVE); Ketones NEGATIVE (NEGATIVE); Nitrite NEGATIVE (NEGATIVE); Protein,Urine Dip NEGATIVE (Negative); RBC NEGATIVE Ery/ul (0-5); Urobilinogen 0.2 mg/dL (0-1)
[2021-12-27 09:42] LABS: RBC NONE SEEN /HPF (0-2); Urine Cultured Indicated? NO
[2021-12-27 09:45] LABS: ALBUMIN 3.6 g/dL (3.5-5.0); ALKALINE PHOSPHATASE 61 U/L (38-126); ANION GAP 10.1 MEQ/L (5-15); BLOOD UREA NITROGEN 8 mg/dL (7-17); CHLORIDE 108 mmol/L (98-107); Calcium 8.6 mg/dL (8.4-10.2); Carbon Dioxide 25 mmol/L (22-30); EST GLOMERULAR FILTRATION RATE > 60.0 ML/MIN; Glucose 77 mg/dL (74-106); Potassium 3.3 mmol/L (3.5-5.1); SGOT/AST 18 U/L (14-36); SGPT/ALT 10 U/L (0-35); SODIUM 139 mmol/L (137-145); Total Protein 6.5 g/dL (6.3-8.2)
[2021-12-27 09:54] LABS: Amphetamine,Urine POSITIVE (NEGATIVE); Barbiturate,Urine NEGATIVE (NEGATIVE); Benzodiazepine,Urine POSITIVE (NEGATIVE); Cocaine,Urine NEGATIVE (NEGATIVE); Methadone,Urine NEGATIVE (NEGATIVE); Opiate,Urine NEGATIVE (NEGATIVE); PCP,Urine NEGATIVE (NEGATIVE); THC,Urine POSITIVE (NEGATIVE)
--- NOTE | 2021-12-27 10:27 | XRAY ---
Indication: Dizziness. "Feeling weird." Low blood pressure. Multiple contiguous axial images obtained through the head without contrast. Comparison: October 29, 2019 Normal appearing brain parenchyma, ventricles, and bony calvarium for patient's age. Visualized paranasal sinuses and mastoid air cells are clear. Impression: Continued normal CT head without contrast exam.
[2021-12-27 11:35] VITALS: O2SAT 99
[2021-12-27 12:10] VITALS: BP 96/66; PULSE 52
== END 2021-12-27 12:15 | disposition home or self-care (01) ==
LOC: ED 08:48
DX: R00.1 Bradycardia, unspecified (principal); R42 Dizziness and giddiness; E78.5 Hyperlipidemia, unspecified; Z72.0 Tobacco use; Z79.891 Long term (current) use of opiate analgesic; Z79.899 Other long term (current) drug therapy
CPT/HCPCS: 36000; 36415; 70450; 80053; 80307; 81015; 83735; 84484; 85025; 93005; 93225; 96360; 99284

== ENCOUNTER 2023-11-21 06:13 | Day surgery (SDC) | payer BC ==
--- NOTE | 2023-11-20 11:20 | HP ---
DATE OF SURGERY: 11/21/2023 HISTORY OF PRESENT ILLNESS: The patient is a 53-year-old female presented for colonoscopy. Last colonoscopy four or five years ago with Dr. Powell. The patient reports having about 18 polyps. The patient reports some diarrhea and constipation. No bleeding. The patient has some epigastric pain and she was placed on a proton pump inhibitor, Carafate. It helped some but did notice that the heartburn came back. PAST MEDICAL HISTORY: Anxiety, depression, seizure, gastroesophageal reflux disease, asthma, hyperlipidemia. PAST SURGICAL HISTORY: Hysterectomy. ALLERGIES: SULFA. MEDICATIONS: Topiramate, tizanidine, Senokot, risperidone, potassium, MiraLAX, pantoprazole, fish oil, meloxicam, loratadine, estradiol, duloxetine, dextroamphetamine/amphetamine, budesonide, atorvastatin, Xanax, albuterol. FAMILY HISTORY: Unknown. The patient was adopted. SOCIAL HISTORY: Current every day smoker. REVIEW OF SYSTEMS: CONSTITUTIONAL: Denies fever or chills. CHEST: Denies shortness of breath. CVS: Denies chest pain. ABDOMEN: Reports epigastric pain. PHYSICAL EXAMINATION: GENERAL: No acute distress. CHEST: Nonlabored. No shortness of breath. CVS: Regular rate and rhythm. ABDOMEN: Soft. IMPRESSION: Epigastric pain and screening. History of colon polyps. PLAN: EGD and colonoscopy with Dr. Andrew Carrera. As dictated by Mariah Matt NP.
[2023-11-21] MEDS: Lactated Ringers 1,000 ML IV SCH (07:53)
[2023-11-21] MEDS ORDERED: DIPRIVAN 200 MG/20 ML IV ONE (10:47)
[2023-11-21] MEDS ORDERED: Versed 2 MG/2 ML Injection ONE (10:48)
[2023-11-21] MEDS ORDERED: GlucaGen 1 MG ONE (11:00)
[2023-11-21 11:15] VITALS: TEMP 96.6
[2023-11-21 11:34] VITALS: BP 110/62; PULSE 65; RESP 18; O2SAT 99
--- NOTE | 2023-11-21 14:24 | OP ---
SURGERY DATE/TIME: 11/21/2023 1050 PREOPERATIVE DIAGNOSIS: Follow up epigastric pain and polyps. POSTOPERATIVE DIAGNOSES: 1) A 2-inch hiatal hernia. 2) The patient had two - 6 mm polyps one in the distal descending and one in the proximal sigmoid. PROCEDURES: 1) EGD. 2) Colonoscopy complete to cecum with hot polypectomy x2. 3) Additional findings moderate sigmoid diverticulosis. SURGEON: Andrew Carrera M.D. ANESTHESIA: MAC. COMPLICATIONS: None. CONDITION: Stable. DESCRIPTION OF PROCEDURE: Patient taken to endoscopy. MAC sedation provided. Scope introduced. Pharyngoesophageal junction normal. Esophagus normal. There is grade 2 over 4 gastroesophageal reflux disease. There was a 2-inch hiatal hernia. The fundus, body and antrum was normal. Pylorus normal. Duodenal bulb normal. Second portion normal. Scope withdrawn and looped upon itself. A 2-inch hiatal hernia. Anal digital examination satisfactory. Colonoscope introduced. There was moderate diverticulosis of sigmoid. There was some spasm. Glucagon given. Scope advanced to the cecum. Base of the cecum, ileocecal valve, appendiceal orifice normal. Ascending, hepatic, transverse, splenic and the descending 6 mm polyp taken with hot biopsy forceps to extinction and the sigmoid a 6 mm taken and sent in separate jars. Rectum, anus. The patient tolerated the procedure satisfactory. Follow up in five years.
== END 2023-11-21 11:42 | disposition home or self-care (01) ==
LOC: SDC 06:13
PROVIDERS: ATTEND Surgery
DX: Z12.11 Encounter for screening for malignant neoplasm of colon (principal); Z09 Encounter for follow-up examination after completed treatment for conditions other than malignant neoplasm; Z86.010 Personal history of colon polyps; R10.13 Epigastric pain; K44.9 Diaphragmatic hernia without obstruction or gangrene; K21.9 Gastro-esophageal reflux disease without esophagitis; D12.5 Benign neoplasm of sigmoid colon
CPT/HCPCS: J1610; J2250; J2704

== ENCOUNTER 2024-01-06 07:56 | Emergency (ER) | payer BC ==
[2024-01-06 08:07] VITALS: TEMP 96.4
--- NOTE | 2024-01-06 08:07 | ERPHSYRPT ---
- History of Present Illness Time Seen by Provider: 01/06/24 08:07 Source: patient Exam Limitations: no limitations Physician History: This is a 53-year-old white female patient of Dr. Gray who has no prior stroke history and no prior episodes similar to what has occurred this morning. Patient states that she went to bed feeling fine/her usual self at approximately 9 PM last evening but woke up with numbness feeling in her left upper extremity. She is states that the left upper extremity feels "" although she can move it fine. She states that she started to feel heaviness in her left upper extremity but is able to walk and ambulate on her own. Patient transferred from the wheelchair to the bed. Patient is speaking very clearly. She denies visual changes. She denies headache. Patient is a daily smoker of tobacco cigarettes. There is no new medications in her armamentarium. Patient has anxiety issues, hyperlipidemia, gastroesophageal reflux disease, peripheral neuropathy, seizure disorder, degenerative disc disease and chronic angina. Patient admits that she is under significant amount of stress at this time. Timing/Duration: today Severity: mild Character of Deficits: new weakness, altered sensation, LUE (Upper extremity) Deficits: no difficulties Baseline/Normal Cognition: alert oriented x 3 Current Cognition: alert oriented x 3 Baseline Gait: walks w/o assistance Associated Symptoms: weakness (Upper extremity), numbness/tingling in legs/feet (Left upper and left lower extremity), No slurred speech, No headache Allergies/Adverse Reactions: Sulfa (Sulfonamide Antibiotics) Allergy (Verified 01/06/24 08:19) Home Medications: ALPRAZolam 1 MG [Xanax 1 mg] 1 mg PO TID PRN PRN 05/22/18 [History] Potassium Chloride Tab* [Klor Con] 20 meq PO DAILY 05/22/18 [History] Topiramate [Topiramate ER] 150 mg PO BID 05/22/18 [History] estradioL [Estradiol] 2 mg PO DAILY 05/22/18 [History] Tizanidine HCl 4 mg [Zanaflex 4 MG] 4 mg PO BID PRN 04/29/19 [History] Atorvastatin Calcium [Lipitor 20MG Tablet] 20 mg PO HS 11/05/23 [History] Dextroamphetamine/Amphetamine [Adderall Xr 20 mg Capsule] 20 mg PO DAILY 11/05/23 [History] [place]-3 Fatty Acids/Fish Oil [Fish Oil 1,000 mg Capsule] 1,000 mg PO BID 11/05/23 [History] Pantoprazole Sodium [Protonix] 40 mg PO DAILY 11/05/23 [History] risperiDONE [Risperdal] 1 mg PO BID 11/05/23 [History] Albuterol Sulfate [Albuterol Sulfate Hfa] 2 puff PO Q4H PRN PRN 01/06/24 [History] Cyanocobalamin 1000 Mcg/ml [Cyanocobalamin B-12 1000 MCG/ML] 1 ml IM DIRECTIONS UNKNOWN 01/06/24 [History] Potassium Chloride 10 mg PO HS 01/06/24 [History] Hx Tetanus, Diphtheria Vaccination/Date Given: Yes Hx Influenza Vaccination/Date Given: Yes Hx Pneumococcal Vaccination/Date Given: No Travel Risk - International Travel Have you traveled outside of the country in past 3 weeks: No - Emerging Infectious Disease Are you exhibiting symptoms associated with any current EIDs: No - Review of Systems Constitutional: Weakness (Left upper extremity left lower extremity) Eyes: No Symptoms Ears, Nose, & Throat: No Symptoms Respiratory: No Symptoms Cardiac: No Symptoms Abdominal/Gastrointestinal: No Symptoms Genitourinary Symptoms: No Symptoms Musculoskeletal: No Symptoms Skin: No Symptoms Neurological: Parasthesia (Left upper and left lower extremity), No Dizziness, No Speech Changes Psychological: Anxiety Endocrine: No Symptoms Hematologic/Lymphatic: No Symptoms Immunological/Allergic: No Symptoms All Other Systems: Reviewed and Negative - Past Medical History Pertinent Past Medical History: Yes Neurological History: Peripheral Neuropathy, Seizures ENT History: No Pertinent History Cardiac History: Angina, High Cholesterol Respiratory History: No Pertinent History Endocrine Medical History: No Pertinent History Musculoskeletal History: Degenerative Disk Disease GI Medical History: No Pertinent History History: No Pertinent History Psycho-Social History: Anxiety Female Reproductive Disorders: No Pertinent History Other Medical History: PATIENT STATES HX OF ONE SEIZURE BUT IS ON MEDICATION AND NO RECENT EPISODES. - Past Surgical History Past Surgical History: Yes Neuro Surgical History: No Pertinent History Cardiac: No Pertinent History Respiratory: No Pertinent History Gastrointestinal: Cholecystectomy Genitourinary: No Pertinent History Musculoskeletal: Other Female Surgical History: Hysterectomy, Tubal Ligation Other Surgical History: sinus, carpal tunnel release - Social History Smoking Status: Current every day smoker How long have you smoked: 40 Exposure to second hand smoke: Yes Drug Use: marijuana Patient Lives Alone: No - Nursing Vital Signs Nursing Vital Signs: Initial Vital Signs Temperature 96.4 F 01/06/24 07:57 Pulse Rate 72 01/06/24 07:57 Respiratory Rate 17 01/06/24 07:57 Blood Pressure 132/85 01/06/24 07:57 O2 Sat by Pulse Oximetry 97 01/06/24 07:57 Pain Scale Pain Intensity 0 - Kate Coma Scale Best Eye Response ([place]): (4) open spontaneously Best Verbal Response ([place]): (5) oriented Best Motor Response ([place]): (6) obeys commands Kate Total: 15 - Physical Exam General Appearance: no apparent distress, alert, anxiety Eye Exam: bilateral eye: normal inspection, PERRL, EOMI Ears, Nose, Throat Exam: normal ENT inspection, TMs normal, pharynx normal, moist mucous membranes Neck Exam: normal inspection, non-tender, supple, full range of motion Respiratory: normal breath sounds, lungs clear, airway intact, No chest t enderness, No respiratory distress Cardiovascular: regular rate/rhythm, normal heart sounds, normal peripheral pulses Gastrointestinal: soft, normal bowel sounds, No tenderness Pelvic Exam: not done Rectal Exam: not done Back Exam: normal inspection, normal range of motion, No CVA tenderness, No vertebral tenderness Extremity Exam: normal inspection, normal range of motion, pelvis stable Mental Status: alert, oriented x 3, 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 QTc is 419) Ordered Tests: Active Orders 24 hr Category Date Time Status AMA [Release AMA] OM.NOW Care 01/06/24 11:08 Ordered Slitter Creaser Slotter Helper STAT Care 01/06/24 08:31 Active EKG-ER Only STAT Care 01/06/24 08:30 Active IV Insertion STAT Care 01/06/24 08:30 Active NPO (ED) STAT Care 01/06/24 08:31 Active Pulse Oximetry (ED) STAT Care 01/06/24 08:30 Active HEAD WITHOUT CONTRAST [CT] Stat Exams 01/06/24 08:04 Completed MRI BRAIN W & W/O CONTRAST [MRI] Stat Exams 01/06/24 08:44 Ordered CBC W DIFF Stat Lab 01/06/24 09:07 Completed CMP Stat Lab 01/06/24 09:07 Completed MAGNESIUM Stat Lab 01/06/24 09:07 Completed TROPONIN Q4H Lab 01/06/24 09:07 Completed TROPONIN Q4H Lab 01/06/24 12:45 Ordered TROPONIN Q4H Lab 01/06/24 16:45 Ordered UA W/RFX UR CULTURE Stat Lab 01/06/24 10:00 Completed Lab/Rad Data: Laboratory Result Diagrams 01/06/24 09:07 01/06/24 09:07 Laboratory Results 01/06/24 01/06/24 01/06/24 Range/Units 10:00 09:07 09:07 WBC (3.98-10.04) x10^3/uL RBC (3.93-5.22) x10^6/uL Hgb (11.2-15.7) g/dL Hct (34.1-44.9) % MCV (79.4-94.8) fL MCH (25.6-32.2) pg MCHC (32.2-35.5) g/dL RDW (11.7-14.4) % Plt Count (182-369) x10^3/uL MPV (9.4-12.3) fL Gran % (34.0-71.1) % Immature Gran % (Auto) (0.001-0.429) % Nucleat RBC Rel Count (0.00-0.2) % Eos # (Auto) (0.04-0.36) x10^3/uL Immature Gran # (Auto) (0.001-0.031) x10^3u/L Absolute Lymphs (auto) (1.18-3.74) x10^3/uL Absolute Monos (auto) (0.24-0.86) x10^3/uL Absolute Nucleated RBC (0.00-0.012) x10^3u/L Lymphocytes % (19.3-51.7) % Monocytes % (4.7-12.5) % Eosinophils % (0.7-5.8) % Basophils % (0.1-1.2) % Absolute Granulocytes (1.56-6.13) x10^3/uL Basophils # (0.01-0.08) x10^3/uL Sodium 140 (135-145) mmol/L Potassium 3.9 (3.5-5.1) mmol/L Chloride 112 H (98-107) mmol/L Carbon Dioxide 22 (22-30) mmol/L Anion Gap 10.3 (5-15) MEQ/L BUN 7 (7-17) mg/dL Creatinine 0.92 (0.52-1.04) mg/dL Estimated GFR 74.0 ML/MIN Glucose 96 (74-106) mg/dL Calcium 8.7 (8.4-10.2) mg/dL Magnesium 2.0 (1.6-2.3) mg/dL Total Bilirubin 0.20 (0.2-1.3) mg/dL AST 19 (14-36) U/L ALT 13 (0-35) U/L Alkaline Phosphatase 76 (38-126) U/L Troponin I < 0.012 (0.000-0.033) ng/mL Serum Total Protein 6.7 (6.3-8.2) g/dL Albumin 3.7 (3.5-5.0) g/dL Urine Color Yellow (Yellow) Urine Appearance Clear (Clear) Urine pH 7.5 (4.6-8.0) Ur Specific [place] <=1.005 (1.005-1.030) Urine Protein Negative (Negative) Urine Glucose (UA) Negative (Negative) mg/dL Urine Ketones Negative (Negative) Urine Blood Negative (Negative) Urine Nitrite Negative (Negative) Urine Bilirubin Negative (Negative) Urine Urobilinogen 0.2 (0.2) mg/dL Ur Leukocyte Esterase Negative (Negative) U Hyaline Cast (Auto) NONE SEEN (0-2) /LPF Urine Microscopic RBC 0-2 (0-5) /HPF Urine Microscopic WBC 0-2 (0-5) /HPF Ur Epithelial Cells None Seen (None Seen) /HPF Urine Bacteria None Seen (None Seen) /HPF Urine Culture Reflexed NO (NO) 01/06/24 Range/Units 09:07 WBC 6.3 (3.98-10.04) x10^3/uL RBC 3.79 L (3.93-5.22) x10^6/uL Hgb 11.8 (11.2-15.7) g/dL Hct 36.9 (34.1-44.9) % MCV 97.4 H (79.4-94.8) fL MCH 31.1 (25.6-32.2) pg MCHC 32.0 L (32.2-35.5) g/dL RDW 13.2 (11.7-14.4) % Plt Count 245 (182-369) x10^3/uL MPV 10.1 (9.4-12.3) fL Gran % 66.3 (34.0-71.1) % Immature Gran % (Auto) 0.2 (0.001-0.429) % Nucleat RBC Rel Count 0.0 (0.00-0.2) % Eos # (Auto) 0 L (0.04-0.36) x10^3/uL Immature Gran # (Auto) 0.01 (0.001-0.031) x10^3u/L Absolute Lymphs (auto) 1.61 (1.18-3.74) x10^3/uL Absolute Monos (auto) 0.41 (0.24-0.86) x10^3/uL Absolute Nucleated RBC 0.00 (0.00-0.012) x10^3u/L Lymphocytes % 25.7 (19.3-51.7) % Monocytes % 6.5 (4.7-12.5) % Eosinophils % 0.0 L (0.7-5.8) % Basophils % 1.3 H (0.1-1.2) % Absolute Granulocytes 4.16 (1.56-6.13) x10^3/uL Basophils # 0.08 (0.01-0.08) x10^3/uL Sodium (135-145) mmol/L Potassium (3.5-5.1) mmol/L Chloride (98-107) mmol/L Carbon Dioxide (22-30) mmol/L Anion Gap (5-15) MEQ/L BUN (7-17) mg/dL Creatinine (0.52-1.04) mg/dL Estimated GFR ML/MIN Glucose (74-106) mg/dL Calcium (8.4-10.2) mg/dL Magnesium (1.6-2.3) mg/dL Total Bilirubin (0.2-1.3) mg/dL AST (14-36) U/L ALT (0-35) U/L Alkaline Phosphatase (38-126) U/L Troponin I (0.000-0.033) ng/mL Serum Total Protein (6.3-8.2) g/dL Albumin (3.5-5.0) g/dL Urine Color (Yellow) Urine Appearance (Clear) Urine pH (4.6-8.0) Ur Specific [place] (1.005-1.030) Urine Protein (Negative) Urine Glucose (UA) (Negative) mg/dL Urine Ketones (Negative) Urine Blood (Negative) Urine Nitrite (Negative) Urine Bilirubin (Negative) Urine Urobilinogen (0.2) mg/dL Ur Leukocyte Esterase (Negative) U Hyaline Cast (Auto) (0-2) /LPF Urine Microscopic RBC (0-5) /HPF Urine Microscopic WBC (0-5) /HPF Ur Epithelial Cells (None Seen) /HPF Urine Bacteria (None Seen) /HPF Urine Culture Reflexed (NO) - Progress Progress Note: 01/06/24 08:53 My medical decision making in the assignment of moderate complexity to this patient's medical issue today is based on review of the patient's past medical history, reviewed patient's medication list, review of patient drug allergy list, history present illness and physical findings on examination. The workup in this patient includes placement of intravenous line, CBC, CMP, urinalysis, magnesium level, troponin level, twelve-lead EKG, stat CT scan of the head without contrast. Differential diagnosis includes CVA, TIA, anxiety, electrolyte abnormality, urinary tract infection 01/06/24 08:55 CT scan of the head without contrast was interpreted by the radiologist and I reviewed the impression. The impression states normal head without contrast. 01/06/24 11:08 I have interpreted the patient's laboratory data results. Based on the laboratory data results, there are no acute, or emergent medical issues. The patient has stated that this is taking too long and she wants to leave. She is going to leave AGAINST MEDICAL ADVICE. I attempted to convince her to stay to complete the workup including an MRI with and without of the brain as well as a teleneurology consultation. She states that it was taking too long and she does not have the funds to pay for additional testing or specialist consultation. I told her that her symptoms could be an early sign of a pending stroke and her symptoms could worsen and she could have a devastating, life altering stroke or possibly even succumb to . Patient is awake alert and oriented and she understands and will sign the AGAINST MEDICAL ADVICE form. Counseled pt/family regarding: lab results, diagnosis, rad results Medical Desision Making - Diagnostic Testing Diagnostic test were ordered, analyzed, and reviewed by me: Yes Radiological Interpretation: Reviewed by me, Teleradiologist Report - Risk of complications The pt has a high risk of morbidity or mortality based on: Decision regarding hospitilization or escalation of hosp level of care - Departure Departure Disposition: AMA Clinical Impression: Numbness and tingling in left arm, Weakness of left upper extremity Condition: Stable Critical Care Time: No Referrals: NISHANT GRAY MD [Primary Care Provider] - Follow up/PCP as directed Additional Instructions: Return to the emergency department if you decide to complete the workup. Call your primary care provider today, 01/06/2024 to make arrangement for follow-up appointment for further evaluation management.
--- NOTE | 2024-01-06 08:42 | XRAY ---
Indication: Left-sided numbness. Stroke. Multiple contiguous axial images obtained through the head without contrast. Comparison: December 27, 2021 Normal appearing brain parenchyma, ventricles, and bony calvarium. Visualized paranasal sinuses and mastoid air cells are clear. Impression: Continued normal CT head without contrast exam.
[2024-01-06 09:07] LABS: Absolute Neutrophil Ct (ANC) 4.16 x10^3/uL (1.56-6.13); BASOPHIL % 1.3 % (0.1-1.2); Basophil (Absolute #) 0.08 x10^3/uL (0.01-0.08); Eosinophil (Absolute #) 0 x10^3/uL (0.04-0.36); Hematocrit 36.9 % (34.1-44.9); Hemoglobin 11.8 g/dL (11.2-15.7); IMMATURE GRAN # 0.01 x10^3u/L (0.001-0.031); IMMATURE GRAN % 0.2 % (0.001-0.429); Lymphocyte (Absolute #) 1.61 x10^3/uL (1.18-3.74); Lymphocytes % 25.7 % (19.3-51.7); Mean Cell Volume 97.4 fL (79.4-94.8); Mean Corpuscular Hemoglobin 31.1 pg (25.6-32.2); Mean Platelet Volume 10.1 fL (9.4-12.3); Monocyte (Absolute #) 0.41 x10^3/uL (0.24-0.86); Monocytes % 6.5 % (4.7-12.5); Neutrophil % 66.3 % (34.0-71.1); Platelet Count 245 x10^3/uL (182-369); Red Blood Count 3.79 x10^6/uL (3.93-5.22); Red Cell Distribution Width 13.2 % (11.7-14.4); White Blood Count 6.3 x10^3/uL (3.98-10.04)
[2024-01-06 09:23] LABS: ALBUMIN 3.7 g/dL (3.5-5.0); ANION GAP 10.3 MEQ/L (5-15); BILIRUBIN,TOTAL 0.2 mg/dL (0.2-1.3); Calcium 8.7 mg/dL (8.4-10.2); Creatinine 1 0.92 mg/dL (0.52-1.04); Potassium 3.9 mmol/L (3.5-5.1); Total Protein 6.7 g/dL (6.3-8.2)
[2024-01-06 10:33] LABS: Appearance Clear (Clear); Bacteria None Seen /HPF (None Seen); Bilirubin Negative (Negative); Blood Negative (Negative); Epithelial Cells None Seen /HPF (None Seen); Glucose, Urine Negative (Negative); Hyaline Casts NONE SEEN /LPF (0-2); Ketones Negative (Negative); Leukocyte Esterase Negative (Negative); Nitrite Negative (Negative); Ph 7.5 (4.6-8.0); Protein,Urine Dip Negative (Negative); RBC 0-2 /HPF (0-5); Specific Gravity <=1.005 (1.005-1.030); Urobilinogen 0.2 mg/dL (0.2); WBC 0-2 /HPF (0-5)
[2024-01-06 10:44] LABS: ADD URINE CULTURE? NO (NO)
[2024-01-06 11:06] VITALS: BP 112/82; PULSE 73; RESP 15; O2SAT 97
== END 2024-01-06 11:12 | disposition left against medical advice (07) ==
LOC: ED 07:56
DX: R20.2 Paresthesia of skin (principal); M62.81 Muscle weakness (generalized); E78.5 Hyperlipidemia, unspecified; Z79.899 Other long term (current) drug therapy; Z72.0 Tobacco use
CPT/HCPCS: 36000; 36415; 70450; 80053; 81001; 83735; 84484; 85025; 93005; 93041; 94760; 99284

== ENCOUNTER 2024-10-07 13:40 | Observation (INO) | payer BC ==
--- NOTE | 2024-10-07 14:16 | ERPHSYRPT ---
- History of Present Illness Source: patient Exam Limitations: no limitations Patient Subjective Stated Complaint: low potassium Triage Nursing Assessment: Pt brought self to the ER, vitals wnl, rates leg pain as 8/10, pulses normal, skin n/w/d, reports that they just placed her on lasix yesterday for swelling of her ankles and she takes 600mg of OTC potassium, denies chest pain, denies difficulty breathing, states dizziness, dry mouth Hx Tetanus, Diphtheria Vaccination/Date Given: Yes Hx Influenza Vaccination/Date Given: Yes Hx Pneumococcal Vaccination/Date Given: No <FREDY ALFONSO - Last Filed: 10/07/24 19:21> <SENG FERNANDEZ - Last Filed: 10/07/24 21:03> - History of Present Illness Physician History: Patient has a history of low potassium. She says she takes [id number] potassium supplements. She has peripheral edema and started taking Lasix but she had her first dose yesterday. They got screening lab work because they are starting her on Lasix. That is how they discovered the low potassium which is why she is here. She has a potassium of 2.3. She does not have any symptoms. (FREDY ALFONSO) Allergies/Adverse Reactions: Sulfa (Sulfonamide Antibiotics) Allergy (Verified 10/07/24 13:58) Home Medications: ALPRAZolam 1 MG [Xanax 1 mg] 1 mg PO TID PRN PRN 05/22/18 [History] Topiramate [Topiramate ER] 50 mg PO UD 05/22/18 [History] Atorvastatin Calcium [Lipitor 20MG Tablet] 40 mg PO HS 11/05/23 [History] risperiDONE [Risperdal] 1 mg PO BID 11/05/23 [History] Albuterol Sulfate [Albuterol Sulfate Hfa] 2 puff PO Q4H PRN PRN 01/06/24 [History] Cyanocobalamin 1000 Mcg/ml [Cyanocobalamin B-12 1000 MCG/ML] 1 ml IM Q30D 01/06/24 [History] Aspirin 325 mg PO DAILY 10/07/24 [History] Cetirizine HCl 10 mg PO DAILY 10/07/24 [History] Dextroamphetamine/Amphetamine [Dextroamp-Amphet ER 20 mg Cap] 30 mg PO DAILY 10/07/24 [History] Dextroamphetamine/Amphetamine [Dextroamp-Amphetamin 10 mg Tab] 10 mg PO DAILY 10/07/24 [History] Sertraline HCl 100 mg PO DAILY 10/07/24 [History] Travel Risk - International Travel Have you traveled outside of the country in past 3 weeks: No - Emerging Infectious Disease Are you exhibiting symptoms associated with any current EIDs: No <FREDY ALFONSO - Last Filed: 10/07/24 19:21> - Review of Systems Constitutional: No Symptoms, Night Sweats Ears, Nose, & Throat: No Symptoms Genitourinary Symptoms: No Symptoms Musculoskeletal: No Symptoms <FREDY ALFONSO - Last Filed: 10/07/24 19:21> - Past Medical History Pertinent Past Medical History: Yes Neurological History: Seizures, Stroke ENT History: No Pertinent History Cardiac History: High Cholesterol, Other Respiratory History: Asthma, COPD Endocrine Medical History: No Pertinent History Musculoskeletal History: No Pertinent History GI Medical History: No Pertinent History History: No Pertinent History Psycho-Social History: Anxiety Female Reproductive Disorders: No Pertinent History Other Medical History: STATES HAD BLOOD CLOT RIGHT SIDE OF BRAIN THAT FRAGMENTED OUT - Past Surgical History Past Surgical History: Yes Neuro Surgical History: No Pertinent History Cardiac: No Pertinent History Respiratory: No Pertinent History Gastrointestinal: Cholecystectomy Genitourinary: No Pertinent History Musculoskeletal: Other Female Surgical History: Hysterectomy, Tubal Ligation Other Surgical History: sinus, carpal tunnel release - Social History Smoking Status: Current every day smoker How long have you smoked: 40 Exposure to second hand smoke: Yes Drug Use: marijuana - Social Determinants of Health Will the patient participate in the screening: Yes Do you worry about a steady place to live?: No Do you have any problems with any of the following?: No known problems In the past 12 months,have you had to go without utilities?: No Transportation Issues: No Has anyone in your support network made you feel unsafe?: No Have you or anyone in your house had to go w/o enough food: No <FREDY ALFONSO - Last Filed: 10/07/24 19:21> - Physical Exam General Appearance: no apparent distress Eye Exam: photophobia Respiratory Exam: normal breath sounds Cardiovascular Exam: regular rate/rhythm Neurologic Exam: alert, oriented x 3 Skin Exam: normal color SpO2: 99 <FREDY ALFONSO - Last Filed: 10/07/24 19:21> - Nursing Vital Signs Nursing Vital Signs: Initial Vital Signs Temperature 97.0 F 10/07/24 13:46 Pulse Rate 73 10/07/24 13:46 Respiratory Rate 16 10/07/24 13:46 Blood Pressure 128/77 10/07/24 13:46 O2 Sat by Pulse Oximetry 99 10/07/24 13:46 Pain Scale Pain Intensity 0 - Course EKG Interpreted by Me: RATE, Sinus Rhythm, NORMAL AXIS, NORMAL INTERVALS, NORMAL QRS <FREDY ALFONSO - Last Filed: 10/07/24 19:21> Ordered Tests: Active Orders 24 hr Category Date Time Status EKG-ER Only STAT Care 10/07/24 14:17 Active Telemetry q4h Care 10/07/24 14:15 Completed BMP Stat Lab 10/07/24 19:11 Completed CMP Stat Lab 10/07/24 20:10 Completed Transfer Order Routine Transfer 10/07/24 Ordered Medication Summary Generic Name Dose Route Start Last Admin Trade Name Freq PRN Reason Stop Dose Admin Potassium Chloride 20 meq in 100 mls @ 50 mls/hr 10/07/24 14:15 10/07/24 19:15 Potassium Chloride 20 Meq In Water 100ml IV 10/07/24 18:14 Infused Q2H DANUTA Infusion Sodium Chloride 500 mls @ 50 mls/hr 10/07/24 14:30 10/07/24 20:15 Sodium Chloride 0.9% 500 Ml IV 11/06/24 14:29 Infused .Q10H DANUTA Infusion Sodium Chloride 500 mls @ 50 mls/hr 10/07/24 18:30 10/07/24 20:15 Sodium Chloride 0.9% 500 Ml IV 11/06/24 18:29 0 mls/hr .Q10H DANUTA Infusion Magnesium Sulfate/Dextrose 100 mls @ 100 mls/hr 10/07/24 21:00 Magnesium 1 Gm / 100 Ml D5w IV 10/07/24 22:59 Q1H DAUNTA Discontinued Medications Generic Name Dose Route Start Last Admin Trade Name Freq PRN Reason Stop Dose Admin Potassium Chloride 40 meq 10/07/24 14:14 10/07/24 14:25 Potassium Chloride Tab 10 Meq Tab PO 10/07/24 14:15 40 meq STAT ONE Administration Potassium Chloride Confirm 10/07/24 14:21 Potassium Chloride Tab 10 Meq Tab Administered 10/07/24 14:22 Dose 40 meq .ROUTE .STK-MED ONE Lab/Rad Data: Laboratory Result Diagrams 10/07/24 20:10 Laboratory Results 10/07/24 10/07/24 Range/Units 20:10 19:11 Sodium 139 138 (135-145) mmol/L Potassium 2.6 L* 2.3 L* (3.5-5.1) mmol/L Chloride 105 101 (98-107) mmol/L Carbon Dioxide 25 25 (22-30) mmol/L Anion Gap 11.6 14.2 (5-15) MEQ/L BUN 4 L 2 L (7-17) mg/dL Creatinine 0.85 0.83 (0.52-1.04) mg/dL Estimated GFR 80.9 83.2 ML/MIN Glucose 104 111 H (74-106) mg/dL Calcium 8.4 8.4 (8.4-10.2) mg/dL Total Bilirubin 0.30 (0.2-1.3) mg/dL AST 20 (14-36) U/L ALT 14 (0-35) U/L Alkaline Phosphatase 67 (38-126) U/L Serum Total Protein 5.8 L (6.3-8.2) g/dL Albumin 3.3 L (3.5-5.0) g/dL - Progress Progress: improved <FREDY ALFONSO - Last Filed: 10/07/24 19:21> <SENG FERNANDEZ - Last Filed: 10/07/24 21:03> - Progress Progress Note: 10/07/24 19:10 Patient stable throughout stay. I gave her some oral potassium and started a K rider on her. Will redraw the potassium and then let her go homeShe has been turned over to Dr. Fernandez. (FREDY ALFONSO) 54-year-old female presents to our ED for evaluation of hypokalemia. Patient evaluated and treated by Dr. Alfonso. Dr. Alfonso initiated potassium replacement. Repeat potassium still low at 2.6. I added 2 g of magnesium to her treatment regimen. Patient will require hospitalization for further evaluation and treatment. Case discussed with hospitalist at 8:58 PM who accepts admission to observation. Plan of care discussed with patient. She agrees to admission at [facility] for further evaluation and treatment. Portions of this note were created with voice recognition technology. There may be grammatical, spelling, punctuation or sound alike errors Complexity of problem addressed is moderate acute complicated. No critical care time. Complexity of data reviewed and analyzed is moderate. Test ordered test reviewed results analyzed and correlated clinically with history and physical exam. Risk of complication and or risk of morbidity/mortality of patient management is high. Patient requires hospitalization for further evaluation and treatment. Vital stable. Time spent to admit patient is approximately 20 minutes. Plan of care established for shared decision making. No social determinants of health present to impede follow-up. Portions of this note were created with voice recognition technology. There may be grammatical, spelling, punctuation or sound alike errors 10/07/24 21:01 (SENG FERNANDEZ) <FREDY ALFONSO - Last Filed: 10/07/24 19:21> - Departure Departure Disposition: Observation Critical Care Time: No <SENG FERNANDEZ - Last Filed: 10/07/24 21:03> - Departure Clinical Impression: Hypokalemia Condition: Stable Referrals: NISHANT GRAY MD [Primary Care Provider, [facility]] - Follow up/PCP as directed
[2024-10-07] MEDS ORDERED: Sodium Chloride 0.9% 500 ML 500 ML IV ONE ×2 (14:21→18:22)
[2024-10-07] MEDS ORDERED: POTASSIUM CHLORIDE 20 mEq IN WATER 100ML 200 ML IV ONE (14:21)
[2024-10-07] MEDS ORDERED: Klor Con ONE (14:21)
[2024-10-07] MEDS: Klor Con PO ONE (14:25)
[2024-10-07] MEDS: Sodium Chloride 0.9% 500 ML 500 ML IV SCH ×2 (14:27→18:26)
[2024-10-07] MEDS: POTASSIUM CHLORIDE 20 mEq IN WATER 100ML 20 MEQ/100 ML BAG IV SCH (14:29)
[2024-10-07 19:22] LABS: ANION GAP 14.2 MEQ/L (5-15); Calcium 8.4 mg/dL (8.4-10.2); Creatinine 1 0.83 mg/dL (0.52-1.04); EST GLOMERULAR FILTRATION RATE 83.2 ML/MIN
[2024-10-07 19:26] LABS: Potassium 2.3 mmol/L (3.5-5.1)
[2024-10-07 20:30] LABS: ALBUMIN 3.3 g/dL (3.5-5.0); ANION GAP 11.6 MEQ/L (5-15); BILIRUBIN,TOTAL 0.3 mg/dL (0.2-1.3); Calcium 8.4 mg/dL (8.4-10.2); Creatinine 1 0.85 mg/dL (0.52-1.04); EST GLOMERULAR FILTRATION RATE 80.9 ML/MIN; Total Protein 5.8 g/dL (6.3-8.2)
[2024-10-07 20:34] LABS: Potassium 2.6 mmol/L (3.5-5.1)
[2024-10-07] MEDS ORDERED: Magnesium 1 Gm / 100 Ml D5W*** 200 ML IV ONE (21:07)
[2024-10-07] MEDS: Magnesium 1 Gm / 100 Ml D5W*** 100 ML IV SCH (21:08)
[2024-10-07] MEDS ORDERED: Zofran 4 MG/2 ML VIAL IV PRN (22:36)
[2024-10-07] MEDS ORDERED: MILK OF MAGNESIA 30 ML PO PRN (22:36)
[2024-10-07] MEDS ORDERED: TYLENOL 325 MG PO PRN (22:36)
--- NOTE | 2024-10-07 22:50 | PCM.HP ---
History of Present Illness - Chief Complaint Chief Complaint: Hypokalemia Date: 10/07/24 History of Present Illness: is a 54 year old female with a history of hyperlipidemia, seizure disorder, COPD, IBS (with diarrhea more than constipation), colon polyps, and p rior hypokalemia who presents to the hospital as a referral from cardiology clinic for hypokalemia. She has peripheral edema and started taking Lasix but she had her first dose yesterday; screening lab work was obtained because they are starting her on Lasix and the potassium was 2.3. The patient gives a history of prior hypokalemia several yearrs ago for which she takes [id number] potassium supplements. She also has a history of chronic diarrhea with occasional constipation and says that she was told that she has IBS. About 7 years ago she had a colonoscopy which revealed multiple colon polyps, and there was a recommendation at that time to have a repeat endoscopy in 3 years, but this was not pursued. Also about 3 weeks ago she had severe (acute on chronic) diarrhea (with nausea but no emesis) which lasted 10 days and went back to baseline loose stool approximately 2 weeks ago. As above, she only took 1 dose of Lasix yesterday. She does not report muscle cramping. - Review of Systems Constitutional: No Symptoms Eyes: No Symptoms Ears, Nose, & Throat: No Symptoms Respiratory: No Symptoms Cardiac: No Symptoms Abdominal/Gastrointestinal: Diarrhea Genitourinary Symptoms: No Symptoms Musculoskeletal: No Symptoms Skin: No Symptoms Neurological: No Symptoms Psychological: No Symptoms Endocrine: No Symptoms Hematologic/Lymphatic: No Symptoms Immunological/Allergic: No Symptoms All Other Systems: Reviewed and Negative Medications & Allergies Home Medications: Home Medication List ALPRAZolam 1 MG [Xanax 1 mg] 1 mg PO TID PRN PRN 05/22/18 [History Confirmed 10/07/24] Atorvastatin Calcium [Lipitor 20MG Tablet] 40 mg PO HS 11/05/23 [History Confirmed 10/07/24] risperiDONE [Risperdal] 1 mg PO BID 11/05/23 [History Confirmed 10/07/24] Albuterol Sulfate [Albuterol Sulfate Hfa] 2 puff PO Q4H PRN PRN 01/06/24 [History Confirmed 10/07/24] Cyanocobalamin 1000 Mcg/ml [Cyanocobalamin B-12 1000 MCG/ML] 1 ml IM Q30D 01/06/24 [History Confirmed 10/07/24] Aspirin 325 mg PO DAILY 10/07/24 [History Confirmed 10/07/24] Cetirizine HCl 10 mg PO DAILY 10/07/24 [History Confirmed 10/07/24] Dextroamphetamine/Amphetamine [Dextroamp-Amphet ER 20 mg Cap] 30 mg PO DAILY 10/07/24 [History Confirmed 10/07/24] Dextroamphetamine/Amphetamine [Dextroamp-Amphetamin 10 mg Tab] 10 mg PO LUNCH 10/07/24 [History Confirmed 10/07/24] Sertraline HCl 100 mg PO HS 10/07/24 [History Confirmed 10/07/24] Topiramate 50 mg PO DAILY 10/07/24 [History Confirmed 10/07/24] Topiramate 100 mg PO HS 10/07/24 [History Confirmed 10/07/24] Allergies/Adverse Reactions: Allergies Allergy/AdvReac Type Severity Reaction Status Date / Time Sulfa (Sulfonamide Allergy Verified 10/07/24 13:58 Antibiotics) - Past Medical History Past Medical History: Yes Neurological History: Seizures, Stroke ENT History: No Pertinent History Cardiac History: High Cholesterol, Other Respiratory History: Asthma, COPD Endocrine Medical History: No Pertinent History Musculoskelatal History: No Pertinent History GI Medical History: No Pertinent History History: No Pertinent History Pyscho-Social History: Anxiety Reproductive Disorders: No Pertinent History Comment: STATES HAD BLOOD CLOT RIGHT SIDE OF BRAIN THAT FRAGMENTED OUT - Past Surgical History Past Surgical History: Yes Neuro Surgical History: No Pertinent History Cardiac History: No Pertinent History Respiratory Surgery: No Pertinent History GI Surgical History: Cholecystectomy Genitourinary Surgical Hx: No Pertinent History Musculskeletal Surgical Hx: Other Female Surgical History: Hysterectomy, Tubal Ligation Other Surgical History: sinus, carpal tunnel release Significant Family History: no pertinent family hx - Social History Smoking Status: Current every day smoker How long have you smoked: 40 Exposure to second hand smoke: Yes Alcohol: None Drug Use: marijuana - Social Determinants of Health Will the patient participate in the screening: Yes Do you worry about a steady place to live?: No Do you have any problems with any of the following?: No known problems In the past 12 months,have you had to go without utilities?: No Have you or anyone in your house had to go without enough: No Transportation Issues: No Has anyone in your support network made you feel unsafe?: No - Physical Exam Vital Signs: Vital Signs - 24 hr Temp Pulse Resp BP BP Pulse Ox 10/07/24 21:01 78 18 97/62 98 10/07/24 20:30 64 17 104/66 98 10/07/24 20:01 83 18 124/58 99 10/07/24 19:31 73 21 93/65 100 10/07/24 19:21 99 10/07/24 19:01 62 17 94/63 97 10/07/24 18:31 61 18 107/56 97 10/07/24 18:01 72 13 97/58 99 10/07/24 17:31 66 20 106/48 100 10/07/24 17:00 68 19 106/54 99 10/07/24 16:30 60 17 102/72 99 10/07/24 16:00 59 L 16 107/69 98 10/07/24 15:50 69 20 98 10/07/24 15:40 63 14 96 10/07/24 15:31 64 15 99 10/07/24 15:00 67 21 108/63 97 10/07/24 14:30 66 17 103/64 95 10/07/24 14:00 73 15 97/72 97 10/07/24 13:46 97.0 F 73 16 128/77 99 General Appearance: no apparent distress, alert Neurologic Exam: alert, oriented x 3, cooperative, ophthalmology technician II-XII nml as tested, normal mood/affect, nml cerebellar function Eye Exam: PERRL/EOMI, eyes nml inspection Ears, Nose, Throat Exam: normal ENT inspection Neck Exam: normal inspection, non-tender, supple, full range of motion Respiratory Exam: normal breath sounds, lungs clear, airway intact Cardiovascular Exam: regular rate/rhythm, normal heart sounds Gastrointestinal/Abdomen Exam: soft, normal bowel sounds Back Exam: normal range of motion Extremity Exam: normal inspection, pedal edema, swelling (1+ mildly pitting symmetric leg edema) Skin Exam: normal color Results - Labs Lab/Micro Results: Lab Results-Last 24 Hours 10/07/24 10/07/24 Range/Units 19:11 20:10 Sodium 138 139 (135-145) mmol/L Potassium 2.3 L* 2.6 L* (3.5-5.1) mmol/L Chloride 101 105 (98-107) mmol/L Carbon Dioxide 25 25 (22-30) mmol/L Anion Gap 14.2 11.6 (5-15) MEQ/L BUN 2 L 4 L (7-17) mg/dL Creatinine 0.83 0.85 (0.52-1.04) mg/dL Estimated GFR 83.2 80.9 ML/MIN Glucose 111 H 104 (74-106) mg/dL Calcium 8.4 8.4 (8.4-10.2) mg/dL Total Bilirubin 0.30 (0.2-1.3) mg/dL AST 20 (14-36) U/L ALT 14 (0-35) U/L Alkaline Phosphatase 67 (38-126) U/L Serum Total Protein 5.8 L (6.3-8.2) g/dL Albumin 3.3 L (3.5-5.0) g/dL Assessment/Plan (1) Hypokalemia Current Visit: Yes Status: Acute Assessment & Plan: Replete K. Telemetry. Strongly suspect that the hypokalemia is chronic and due to GI loss (discussed below). Will need to be placed on po KCl with close monitoring if Lasix continued. Code(s): E87.6 - HYPOKALEMIA (2) IBS (irritable bowel syndrome) Current Visit: Yes Status: Acute Assessment & Plan: Will need outpatient GI referral and likely colonoscopy for her history of polyposis. (3) Leg edema Current Visit: Yes Status: Acute Assessment & Plan: Workup and management per Cardiology as outpatient. Will need to be placed on po KCl with close monitoring if Lasix continued. Code(s): R60.0 - LOCALIZED EDEMA (4) Seizure disorder Current Visit: Yes Status: Acute Assessment & Plan: Continue current regimen. Code(s): G40.909 - EPILEPSY, UNSP, NOT INTRACTABLE, WITHOUT STATUS EPILEPTICUS Telemedicine Encounter - Telemedicine Encounter Telemedicine Encounter: "The entirety of this encounter was performed via Telemedicine" This visit was performed using real-time audio and video connection between my location and thepatients locationwith the assistance of a surrogateat the patients location. Written or verbal consent was obtained from the patient/guardian to perform this visit usingsynchronoustelemedicine technology. Any patient questions regarding the telemedicine interaction were answered. Please note that this admission required 46 minutes to complete.
[2024-10-07 23:20] LABS: ANION GAP 11.8 MEQ/L (5-15); Calcium 8.4 mg/dL (8.4-10.2); Creatinine 1 0.8 mg/dL (0.52-1.04)
[2024-10-07] MEDS: POTASSIUM CHLORIDE 20 mEq IN WATER 100ML 100 ML IV SCH (23:36)
[2024-10-07] MEDS: Sodium Chloride 0.9% 1000 ML 1,000 ML IV SCH (23:36)
[2024-10-07] MEDS: TOPIRAMATE PO SCH (23:38)
[2024-10-07 23:40] LABS: Potassium 2.5 mmol/L (3.5-5.1)
[2024-10-07] MEDS: ZOCOR 20MG PO SCH (23:40)
[2024-10-07] MEDS: Risperdal 1 MG PO SCH (23:40)
[2024-10-07] MEDS: ZOLOFT 50 MG TABLET PO SCH (23:40)
[2024-10-08] MEDS: XANAX 1 MG PO PRN (00:18)
[2024-10-08 03:08] LABS: Absolute Neutrophil Ct (ANC) 2.53 x10^3/uL (1.56-6.13); BASOPHIL % 0.6 % (0.1-1.2); Basophil (Absolute #) 0.03 x10^3/uL (0.01-0.08); Eosinophil % 1.1 % (0.7-5.8); Eosinophil (Absolute #) 0.05 x10^3/uL (0.04-0.36); Hematocrit 31.7 % (34.1-44.9); Hemoglobin 10.3 g/dL (11.2-15.7); IMMATURE GRAN # 0.01 x10^3u/L (0.001-0.031); IMMATURE GRAN % 0.2 % (0.001-0.429); Lymphocytes % 36.2 % (19.3-51.7); Mean Cell Volume 90.8 fL (79.4-94.8); Mean Corpuscular Hemoglobin 29.5 pg (25.6-32.2); Mean Corpuscular Hgb Concent. 32.5 g/dL (32.2-35.5); Mean Platelet Volume 9.7 fL (9.4-12.3); Monocyte (Absolute #) 0.38 x10^3/uL (0.24-0.86); Monocytes % 8.1 % (4.7-12.5); Neutrophil % 53.8 % (34.0-71.1); Platelet Count 261 x10^3/uL (182-369); Red Blood Count 3.49 x10^6/uL (3.93-5.22); Red Cell Distribution Width 15.1 % (11.7-14.4); White Blood Count 4.7 x10^3/uL (3.98-10.04)
[2024-10-08 03:22] LABS: ANION GAP 10.6 MEQ/L (5-15); Calcium 8.1 mg/dL (8.4-10.2); Creatinine 1 0.78 mg/dL (0.52-1.04); EST GLOMERULAR FILTRATION RATE 89.6 ML/MIN
[2024-10-08 07:14] VITALS: RESP 16
[2024-10-08] MEDS ORDERED: VENTOLIN COMMON CANISTER IH PRN (07:19)
[2024-10-08] MEDS ORDERED: MEDICATION INTERVENTION MC SCH (07:30)
[2024-10-08] MEDS: TOPIRAMATE PO SCH (08:46)
[2024-10-08] MEDS: Ecotrin 325 MG PO SCH (08:46)
[2024-10-08] MEDS: CLARITIN 10 MG PO SCH (08:46)
[2024-10-08] MEDS: ENOXAPARIN SODIUM SQ SCH (08:47)
[2024-10-08] MEDS: Cyanocobalamin B-12 1000 MCG/ML IM SCH (08:47)
[2024-10-08] MEDS: PATIENT OWN MEDICATION PO SCH ×2 (08:49→13:57)
[2024-10-08] MEDS ORDERED: DEXTROAMPHETAMINE PO SCH ×2 (10:00→12:00)
[2024-10-08] MEDS ORDERED: [UNRECOGNIZED DRUG - OTHER] PO SCH (10:00)
[2024-10-08] MEDS ORDERED: AMPHETAMINE PO SCH ×2 (10:00→12:00)
[2024-10-08] MEDS ORDERED: Risperdal 1 MG PO SCH (10:00)
--- NOTE | 2024-10-08 10:09 | PCM.DS ---
Discharge Summary Date of Admission: 10/07/24 21:42 Date of Discharge: 10/08/24 Admitting Physician: JOSH VASQUEZ MD Primary Care Provider: NISHANT GRAY Allergies Allergies Sulfa (Sulfonamide Antibiotics) Allergy (Verified 10/07/24 13:58) Hospital Summary - Hospital Course Hospital Course: 10/08/24 is a 54-year-old female with a medical history of hyperlipidemia, seizure disorder, COPD, irritable bowel syndrome (primarily with diarrhea), colon polyps, and prior episodes of hypokalemia. She presented to the hospital following a referral from the cardiology clinic due to newly identified hypokalemia. She had recently developed peripheral edema and was started on Lasix, taking her first dose just yesterday. Routine screening labs drawn prior to initiation revealed a potassium level of 2.3. She has a known history of hypokalemia for which she has been taking [id number]-koenjiw potassium supplements. She also reports chronic diarrhea with intermittent constipation and was previously diagnosed with IBS. Approximately seven years ago, a colonoscopy revealed multiple polyps, and a repeat colonoscopy was recommended within three years; however, this was not pursued. Of note, she experienced a recent episode of severe diarrhea with associated nausea (but no vomiting) lasting 10 days, which resolved approximately two weeks ago, returning to her baseline of loose stools. She currently denies symptoms such as muscle cramps and reports feeling better today. Her potassium this morning was 3.1 and continues to be replaced. Plans are in place to recheck her potassium level two hours after completion of the second replacement bag. Once her potassium normalizes, she will be discharged home as she states she needs to be home to get her grandchild off the bus. An appointment has been scheduled for outpatient GI follow-up at [facility], and she will be discharged with potassium supplementation to continue while on Lasix. She will also need to follow up with Dr. Leggett for evaluation of a heart murmur; an echocardiogram was completed today. At this time, she denies any further symptoms or concerns. - Vitals & Intake/Output Vital Signs: Vital Signs Temperature 97.7 F 10/08/24 07:14 Pulse Rate 73 10/08/24 07:33 Respiratory Rate 16 10/08/24 07:33 Blood Pressure 104/53 10/08/24 07:14 O2 Sat by Pulse Oximetry 98 10/08/24 07:33 Intake & Output: Intake & Output 10/05/24 10/06/24 10/07/24 10/08/24 11:59 11:59 11:59 11:59 Intake Total 1346 Balance 1346 Weight 94.9 kg - Lab Result Diagrams: 10/08/24 03:08 10/08/24 06:45 Lab Results-Last 24 Hrs: Lab Results-Last 24 Hours 10/07/24 10/07/24 10/07/24 Range/Units 19:11 20:10 23:00 WBC (3.98-10.04) x10^3/uL RBC (3.93-5.22) x10^6/uL Hgb (11.2-15.7) g/dL Hct (34.1-44.9) % MCV (79.4-94.8) fL MCH (25.6-32.2) pg MCHC (32.2-35.5) g/dL RDW (11.7-14.4) % Plt Count (182-369) x10^3/uL MPV (9.4-12.3) fL Gran % (34.0-71.1) % Immature Gran % (Auto) (0.001-0.429) % Nucleat RBC Rel Count (0.00-0.2) % Eos # (Auto) (0.04-0.36) x10^3/uL Immature Gran # (Auto) (0.001-0.031) x10^3u/L Absolute Lymphs (auto) (1.18-3.74) x10^3/uL Absolute Monos (auto) (0.24-0.86) x10^3/uL Absolute Nucleated RBC (0.00-0.012) x10^3u/L Lymphocytes % (19.3-51.7) % Monocytes % (4.7-12.5) % Eosinophils % (0.7-5.8) % Basophils % (0.1-1.2) % Absolute Granulocytes (1.56-6.13) x10^3/uL Basophils # (0.01-0.08) x10^3/uL Sodium 138 139 138 (135-145) mmol/L Potassium 2.3 L* 2.6 L* 2.5 L* (3.5-5.1) mmol/L Chloride 101 105 106 (98-107) mmol/L Carbon Dioxide 25 25 23 (22-30) mmol/L Anion Gap 14.2 11.6 11.8 (5-15) MEQ/L BUN 2 L 4 L 4 L (7-17) mg/dL Creatinine 0.83 0.85 0.80 (0.52-1.04) mg/dL Estimated GFR 83.2 80.9 87.0 ML/MIN Glucose 111 H 104 98 (74-106) mg/dL Calcium 8.4 8.4 8.4 (8.4-10.2) mg/dL Magnesium (1.6-2.3) mg/dL Total Bilirubin 0.30 (0.2-1.3) mg/dL AST 20 (14-36) U/L ALT 14 (0-35) U/L Alkaline Phosphatase 67 (38-126) U/L Serum Total Protein 5.8 L (6.3-8.2) g/dL Albumin 3.3 L (3.5-5.0) g/dL 10/07/24 10/08/24 10/08/24 Range/Units 23:41 03:08 03:08 WBC 4.7 (3.98-10.04) x10^3/uL RBC 3.49 L (3.93-5.22) x10^6/uL Hgb 10.3 L (11.2-15.7) g/dL Hct 31.7 L (34.1-44.9) % MCV 90.8 (79.4-94.8) fL MCH 29.5 (25.6-32.2) pg MCHC 32.5 (32.2-35.5) g/dL RDW 15.1 H (11.7-14.4) % Plt Count 261 (182-369) x10^3/uL MPV 9.7 (9.4-12.3) fL Gran % 53.8 (34.0-71.1) % Immature Gran % (Auto) 0.2 (0.001-0.429) % Nucleat RBC Rel Count 0.0 (0.00-0.2) % Eos # (Auto) 0.05 (0.04-0.36) x10^3/uL Immature Gran # (Auto) 0.01 (0.001-0.031) x10^3u/L Absolute Lymphs (auto) 1.70 (1.18-3.74) x10^3/uL Absolute Monos (auto) 0.38 (0.24-0.86) x10^3/uL Absolute Nucleated RBC 0.00 (0.00-0.012) x10^3u/L Lymphocytes % 36.2 (19.3-51.7) % Monocytes % 8.1 (4.7-12.5) % Eosinophils % 1.1 (0.7-5.8) % Basophils % 0.6 (0.1-1.2) % Absolute Granulocytes 2.53 (1.56-6.13) x10^3/uL Basophils # 0.03 (0.01-0.08) x10^3/uL Sodium 141 (135-145) mmol/L Potassium 3.0 L* (3.5-5.1) mmol/L Chloride 110 H (98-107) mmol/L Carbon Dioxide 23 (22-30) mmol/L Anion Gap 10.6 (5-15) MEQ/L BUN 3 L (7-17) mg/dL Creatinine 0.78 (0.52-1.04) mg/dL Estimated GFR 89.6 ML/MIN Glucose 91 (74-106) mg/dL Calcium 8.1 L (8.4-10.2) mg/dL Magnesium 2.8 H (1.6-2.3) mg/dL Total Bilirubin (0.2-1.3) mg/dL AST (14-36) U/L ALT (0-35) U/L Alkaline Phosphatase (38-126) U/L Serum Total Protein (6.3-8.2) g/dL Albumin (3.5-5.0) g/dL 10/08/24 10/08/24 Range/Units 06:45 06:45 WBC (3.98-10.04) x10^3/uL RBC (3.93-5.22) x10^6/uL Hgb (11.2-15.7) g/dL Hct (34.1-44.9) % MCV (79.4-94.8) fL MCH (25.6-32.2) pg MCHC (32.2-35.5) g/dL RDW (11.7-14.4) % Plt Count (182-369) x10^3/uL MPV (9.4-12.3) fL Gran % (34.0-71.1) % Immature Gran % (Auto) (0.001-0.429) % Nucleat RBC Rel Count (0.00-0.2) % Eos # (Auto) (0.04-0.36) x10^3/uL Immature Gran # (Auto) (0.001-0.031) x10^3u/L Absolute Lymphs (auto) (1.18-3.74) x10^3/uL Absolute Monos (auto) (0.24-0.86) x10^3/uL Absolute Nucleated RBC (0.00-0.012) x10^3u/L Lymphocytes % (19.3-51.7) % Monocytes % (4.7-12.5) % Eosinophils % (0.7-5.8) % Basophils % (0.1-1.2) % Absolute Granulocytes (1.56-6.13) x10^3/uL Basophils # (0.01-0.08) x10^3/uL Sodium (135-145) mmol/L Potassium 3.1 L (3.5-5.1) mmol/L Chloride (98-107) mmol/L Carbon Dioxide (22-30) mmol/L Anion Gap (5-15) MEQ/L BUN (7-17) mg/dL Creatinine (0.52-1.04) mg/dL Estimated GFR ML/MIN Glucose (74-106) mg/dL Calcium (8.4-10.2) mg/dL Magnesium 2.3 (1.6-2.3) mg/dL Total Bilirubin (0.2-1.3) mg/dL AST (14-36) U/L ALT (0-35) U/L Alkaline Phosphatase (38-126) U/L Serum Total Protein (6.3-8.2) g/dL Albumin (3.5-5.0) g/dL - Procedures and Test Procedures and Tests throughout Hospitalization: Therapy Orders & Screens 10/08/24 07:33 Respiratory Therapy Assessment DAILY Comment: Diagnosis: Hypokalemia Discharge Exam General Appearance: no apparent distress, alert Neurologic Exam: alert, oriented x 3, cooperative, normal mood/affect, nml cerebellar function, sensation nml, No motor deficits Eye Exam: PERRL, EOMI, eyes nml inspection Ears, Nose, Throat Exam: normal ENT inspection, pharynx normal, moist mucous membranes Neck Exam: normal inspection, non-tender, supple, full range of motion Respiratory Exam: normal breath sounds, lungs clear, No respiratory distress Cardiovascular Exam: regular rate/rhythm, murmur Gastrointestinal/Abdomen Exam: soft, No tenderness, No mass Pelvic Exam: deferred Rectal Exam: deferred Back Exam: normal inspection, normal range of motion, No CVA tenderness, No vertebral tenderness Extremity Exam: normal inspection, normal range of motion Skin Exam: normal color, warm, dry Final Diagnosis/Problem List - Final Discharge Diagnosis/Problem (1) Hypokalemia Current Visit: Yes Status: Acute Assessment & Plan: - Replete K. - Telemetry. - Strongly suspect that the hypokalemia is chronic and due to GI loss (discussed below). - Will need to be placed on po KCl with close monitoring if Lasix continued. Code(s): E87.6 - HYPOKALEMIA (2) Murmur, cardiac Current Visit: Yes Status: Acute Assessment & Plan: - ECHO for further eval - F/U with Dr. Green OP for f/u Code(s): R01.1 - CARDIAC MURMUR, UNSPECIFIED (3) IBS (irritable bowel syndrome) Current Visit: Yes Status: Chronic Assessment & Plan: - F/U with GI OP as scheduled (4) Leg edema Current Visit: Yes Status: Chronic Assessment & Plan: - Workup and management per Cardiology as outpatient. - Will need to be placed on po KCl with close monitoring if Lasix continued. Code(s): R60.0 - LOCALIZED EDEMA (5) Seizure disorder Current Visit: Yes Status: Chronic Assessment & Plan: - Continue current regimen. Code(s): G40.909 - EPILEPSY, UNSP, NOT INTRACTABLE, WITHOUT STATUS EPILEPTICUS (6) Anxiety Current Visit: No Status: Chronic Assessment & Plan: - Continue Xanax Code(s): F41.9 - ANXIETY DISORDER, UNSPECIFIED - Discharge Discharge Date: 10/08/24 Disposition: Home, Self-Care Condition: Stable Prescriptions: Continue ALPRAZolam 1 MG [Xanax 1 mg] 1 mg PO TID PRN PRN PRN Reason: Anxiety risperiDONE [Risperdal] 1 mg PO BID Atorvastatin Calcium [Lipitor 20MG Tablet] 40 mg PO HS Cyanocobalamin 1000 Mcg/ml [Cyanocobalamin B-12 1000 MCG/ML] 1 ml IM Q30D Albuterol Sulfate [Albuterol Sulfate Hfa] 2 puff PO Q4H PRN PRN PRN Reason: Shortness Of Breath Sertraline HCl 100 mg PO HS Cetirizine HCl 10 mg PO DAILY Dextroamphetamine/Amphetamine [Dextroamp-Amphetamin 10 mg Tab] 10 mg PO LUNCH Dextroamphetamine/Amphetamine [Dextroamp-Amphet ER 20 mg Cap] 30 mg PO DAILY Aspirin 325 mg PO DAILY Topiramate 50 mg PO DAILY Topiramate 100 mg PO HS Follow up with: NISHANT GRAY MD [Primary Care Provider, [facility]]
[2024-10-08 11:34] VITALS: BP 107/57; PULSE 78; TEMP 97.6; O2SAT 96
[2024-10-08] MEDS ORDERED: [UNRECOGNIZED DRUG - OTHER] PO SCH (12:00)
[2024-10-08] MEDS ORDERED: Klor Con ONE (14:43)
[2024-10-08] MEDS: Klor Con PO ONE (14:47)
[2024-10-08] MEDS ORDERED: NON-FORMULARY ITEM (Atorvastatin Calcium 20 MG Tab) PO SCH (22:00)
[2024-10-08] MEDS ORDERED: TOPIRAMATE PO SCH (22:00)
[2024-10-08] MEDS ORDERED: NON-FORMULARY ITEM (Sertraline Hcl [Sertraline Hcl] 100 MG Tablet) PO SCH (22:00)
== END 2024-10-08 14:58 | disposition home or self-care (01) ==
LOC: ED 13:40 → MED SURG 21:42
PROVIDERS: ADMIT Internal Medicine; ATTEND Internal Medicine
DX: E87.6 Hypokalemia (principal); E78.5 Hyperlipidemia, unspecified; R60.0 Localized edema; F17.200 Nicotine dependence, unspecified, uncomplicated; K58.9 Irritable bowel syndrome, unspecified; R01.1 Cardiac murmur, unspecified; G40.909 Epilepsy, unspecified, not intractable, without status epilepticus; F41.9 Anxiety disorder, unspecified; Z79.899 Other long term (current) drug therapy
CPT/HCPCS: 36415; 80048; 80053; 83735; 84132; 85025; 93005; 93268; 93306; 94760; 96374; 99285; G0378; Q3014; 99284; J1650; J3420; J3475; J3480; A9270-GY